=== PATIENT | female | born 1935 | race Caucasian/White ===

== ENCOUNTER → 2018-10-05 | Outpatient (REF) | payer MEDICARE ==
[2018-10-12 00:06] LABS: FATS NEUTRAL Normal (.); FATS TOTAL Normal (.); O+P EXAM Final report (.)
== END ==
LOC: M LAB REF 14:21
DX: R19.4 Change in bowel habit (principal); K58.9 Irritable bowel syndrome, unspecified; K21.9 Gastro-esophageal reflux disease without esophagitis; R11.2 Nausea with vomiting, unspecified
CPT/HCPCS: 87177

== ENCOUNTER → 2019-07-03 | Outpatient (CLI) | payer MEDICARE ==
[~2019-07-03] MED LIST: ACET65TA OR; AMIT75TA2 OR; COMBIGAN OS; COUM1TAB18 OR; DICY10EL OR; FIBER TABS PO; FISHCAP PO; GLUCAGON FOR INJ 1 MG VIAL (J1610) As Ordered ONE; ISOVUE-370 76% 100ML VIAL (Q9967) As Ordered ONE; LIBRAX PO; NEXI1CAP3 OR; NUCYNTA PO; PREMARIN EC; TRAM50TA2 OR; VITAMIN D PO; VoLumen 0.1% SUSPENSION 450ML BOTTLE As Ordered ONE; ZANAFLEX PO; ZOCOR PO; [UNRECOGNIZED DRUG - OTHER] PO; [UNRECOGNIZED DRUG - OTHER] PO
--- NOTE | 2019-07-04 09:30 | REP ---
CT ENTEROGRAPHY WITH ORAL AND IV CONTRAST: CT enterography was performed as per hospital protocol with oral Volumen administered as well as 100 mL of Isovue-370 intravenously. Sagittal and coronal reconstruction images are performed. Visualized lung bases demonstrate minor fibrotic change. Bilateral metallic hip prostheses cause streak artifact limiting evaluation of the lower pelvic structures. The patient has had a prior cholecystectomy. There is expected prominence of the common bile duct which measures about 10 mm maximally. There is slight prominence of the intrahepatic bile ducts. Tiny cyst is seen at the anterior superior margin of the liver. The spleen is normal in size with no intrinsic abnormality. The adrenal glands, pancreas and kidneys are unremarkable. There is no hydronephrosis bilaterally. There is moderate atherosclerotic calcifications of the abdominal aorta without aneurysm. There is no evidence of lymphadenopathy. There is no free air or free fluid. There is no bowel wall thickening. There is sigmoid diverticulosis without evidence of acute diverticulitis. Several subcentimeter lymph nodes are seen in the mesentery predominately on the left side. There is no anterior abdominal wall hernia. No gross pelvic mass is seen. Although again evaluation of inferior pelvic structures is limited. There is oval lucency with sclerotic margin in the superior right acetabulum adjacent to the acetabular prosthesis over the apparent disruption over the lateral acetabular cortex. The area measures about 2.9 x 2.0 cm. IMPRESSION: Status-post cholecystectomy with expected prominence of the common bile duct. No bowel wall thickening or inflammation and no evidence of bowel obstruction. There is sigmoid diverticulosis without acute diverticulitis. No free air or free fluid. Metallic hip prostheses cause streak artifact limiting evaluation of the lower pelvic structures. There is disruption of the lateral acetabular cortex on the right at the interface with the acetabular prosthetic component ,with cystic changes undermining the prosthetic right acetabulum. This appears chronic with no acute fracture, but could indicate developing loosening of that prosthetic acetabular component. Electronically Signed by Shahid Byrd MD 07/04/2019 07:18 P
== END ==
LOC: M RAD 13:04
PROVIDERS: ATTEND Internal Medicine Gastroenterology
DX: K59.1 Functional diarrhea (principal); R11.2 Nausea with vomiting, unspecified; K21.9 Gastro-esophageal reflux disease without esophagitis; Z83.79 Family history of other diseases of the digestive system; R63.4 Abnormal weight loss; Z90.49 Acquired absence of other specified parts of digestive tract; Z96.649 Presence of unspecified artificial hip joint
CPT/HCPCS: 74177; J1610; Q9967

== ENCOUNTER 2019-08-20 16:17 | Emergency (ER) | payer MEDICARE ==
[~2019-08-20 16:17] MED LIST changes: -GLUCAGON FOR INJ 1 MG VIAL (J1610) As Ordered ONE; -ISOVUE-370 76% 100ML VIAL (Q9967) As Ordered ONE; -VoLumen 0.1% SUSPENSION 450ML BOTTLE As Ordered ONE
[2019-08-20] MEDS ORDERED: DICY10CA13 PO (16:39)
[2019-08-20] MEDS ORDERED: RAMI1CAP26 (16:39)
[2019-08-20] MEDS ORDERED: MAG-400T7 (16:39)
[2019-08-20] MEDS ORDERED: NS 500 ML IV ONE ×2 (16:45→17:45)
[2019-08-20 16:58] LABS: BASO % 0.3 % (0.0-1.0); EOS # 0.2 10^3/uL (0.0-0.5); EOS % 2.5 % (0.0-3.0); HEMATOCRIT 40.9 % (36.0-47.0); HEMOGLOBIN 13.3 g/dl (12.0-15.5); LYMPH # 1.1 10^3/uL (1.5-5.0); LYMPH % 15.2 % (24.0-44.0); MEAN CORPUSCULAR HGB CONC 32.5 g/dl (32.0-36.5); MEAN CORPUSCULAR VOLUME 92.3 fl (80.0-96.0); MONO # 0.5 10^3/uL (0.0-0.8); MONO % 6.9 % (0.0-5.0); NEUTROPHILS # 5.3 10^3/uL (1.5-8.5); NEUTROPHILS % 74.7 % (36.0-66.0); PLATELET COUNT, AUTOMATED 194 10^3/uL (150-450); RED BLOOD COUNT 4.43 10^6/uL (4.00-5.40); WHITE BLOOD COUNT 7.1 10^3/uL (4.0-10.0)
[2019-08-20 17:39] LABS: ALBUMIN 3.5 GM/DL (3.2-5.2); ALT/SGPT 19 U/L (12-78); BILIRUBIN,DIRECT < 0.1 MG/DL (0.0-0.2); BILIRUBIN,TOTAL 0.4 MG/DL (0.2-1.0); BLOOD UREA NITROGEN 27 MG/DL (7-18); CALCIUM LEVEL 8.8 MG/DL (8.8-10.2); CARBON DIOXIDE LEVEL 23 MEQ/L (21-32); CHLORIDE LEVEL 110 MEQ/L (98-107); CREATININE FOR GFR 1.13 MG/DL (0.55-1.30); GLOMERULAR FILTRATION RATE 49.1 (>32); GLUCOSE, FASTING 166 MG/DL (70-100); LIPASE 113 U/L (73-393); POTASSIUM SERUM 4.7 MEQ/L (3.5-5.1); SODIUM LEVEL 142 MEQ/L (136-145)
[2019-08-20 18:30] VITALS: BP 177/80
--- NOTE | 2019-08-20 18:39 | ECGEPIP ---
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
== END 2019-08-20 19:04 | disposition home or self-care (01) ==
LOC: EDBD 16:17 → M ED 16:17
DX: R11.2 Nausea with vomiting, unspecified (principal); R19.7 Diarrhea, unspecified; R00.1 Bradycardia, unspecified; I10 Essential (primary) hypertension; E78.5 Hyperlipidemia, unspecified; K58.0 Irritable bowel syndrome with diarrhea; G51.0 Bell's palsy; Z88.5 Allergy status to narcotic agent; Z79.899 Other long term (current) drug therapy

== ENCOUNTER → 2019-08-31 | Outpatient (REF) | payer MEDICARE ==
[~2019-08-31] MED LIST changes: +DICY10CA13 PO; +MAG-400T7; +RAMI1CAP26
== END ==
LOC: M LAB REF 15:40
PROVIDERS: ATTEND Internal Medicine Gastroenterology
DX: K21.9 Gastro-esophageal reflux disease without esophagitis (principal); Z83.79 Family history of other diseases of the digestive system; R63.4 Abnormal weight loss; R11.2 Nausea with vomiting, unspecified; K59.1 Functional diarrhea

== ENCOUNTER → 2020-01-03 | Outpatient (CLI) | payer MEDICARE ==
[2020-01-03 12:38] LABS: HEMATOCRIT 43.5 % (36.0-47.0); HEMOGLOBIN 13.6 g/dl (12.0-15.5); MEAN CORPUSCULAR HEMOGLOBIN 28.9 pg (27.0-33.0); MEAN CORPUSCULAR HGB CONC 31.3 g/dl (32.0-36.5); MEAN CORPUSCULAR VOLUME 92.4 fl (80.0-96.0); PLATELET COUNT, AUTOMATED 224 10^3/uL (150-450); RED BLOOD COUNT 4.71 10^6/uL (4.00-5.40); WHITE BLOOD COUNT 4.9 10^3/uL (4.0-10.0)
[2020-01-03 13:17] LABS: MAGNESIUM LEVEL 1.8 MG/DL (1.8-2.4); PERCENT SATURATION 29.2 % (13.2-45.0); TOTAL 25(OH) VITAMIN D 27.6 NG/ML (30.0-100.0)
== END ==
LOC: M LAB 11:34
PROVIDERS: ATTEND Internal Medicine Gastroenterology
DX: R63.4 Abnormal weight loss (principal); R60.0 Localized edema; R11.2 Nausea with vomiting, unspecified; K21.9 Gastro-esophageal reflux disease without esophagitis; K58.9 Irritable bowel syndrome, unspecified; E55.9 Vitamin D deficiency, unspecified; D50.9 Iron deficiency anemia, unspecified

== ENCOUNTER → 2020-08-20 | Outpatient (CLI) | payer MEDICARE | LOC: M LABSMTC 10:36 | PROVIDERS: ATTEND Pediatrics | DX: Z20.828 Contact with and (suspected) exposure to other viral communicable diseases (principal) ==

== ENCOUNTER → 2021-03-04 | Outpatient (REF) | payer MEDICARE | LOC: M LAB REF 09:16 | PROVIDERS: ATTEND Dermatology | DX: C44.722 Squamous cell carcinoma of skin of right lower limb, including hip (principal) ==

== ENCOUNTER → 2021-07-31 | Outpatient (CLI) | payer MEDICARE | LOC: M PLAIMG 13:24 | PROVIDERS: ATTEND Internal Medicine | DX: M54.5 Low back pain (principal) ==

== ENCOUNTER → 2021-12-26 | Outpatient (CLI) | payer MEDICARE | LOC: M WUC 15:37 | PROVIDERS: ATTEND Internal Medicine | DX: M79.674 Pain in right toe(s) (principal) ==

== ENCOUNTER → 2022-02-03 | Outpatient (CLI) | payer MEDICARE | LOC: M WHC 10:02 | PROVIDERS: ATTEND Internal Medicine | DX: Z12.31 Encounter for screening mammogram for malignant neoplasm of breast (principal); Z13.820 Encounter for screening for osteoporosis; M81.0 Age-related osteoporosis without current pathological fracture ==

== ENCOUNTER → 2022-09-02 | Outpatient (REF) | payer MEDICARE | LOC: M LAB REF 12:21 | PROVIDERS: ATTEND Internal Medicine | DX: R44.1 Visual hallucinations (principal) ==

== ENCOUNTER → 2022-12-08 | Outpatient (REF) | payer MEDICARE | LOC: M LAB REF 12:25 | PROVIDERS: ATTEND Internal Medicine | DX: R44.1 Visual hallucinations (principal) ==

== ENCOUNTER 2023-08-03 23:13 | Observation (INO) | payer MEDICARE ==
[~2023-08-03] VITALS: Ht 172.7 cm; Wt 72.7 kg
[~2023-08-03 23:13] MED LIST changes: +DICY-61 PO; -DICY10CA13 PO
[2023-08-03] MEDS ORDERED: NS 1,000 ML IV ONE (23:45)
[2023-08-04 00:36] LABS: BASO % 0.1 % (0.0-1.0); EOS % 0.1 % (0.0-3.0); HEMATOCRIT 40.2 % (36.0-47.0); HEMOGLOBIN 13.3 g/dl (12.0-15.5); LYMPH % 8.1 % (24.0-44.0); MEAN CORPUSCULAR HEMOGLOBIN 29.6 pg (27.0-33.0); MEAN CORPUSCULAR HGB CONC 33.1 g/dl (32.0-36.5); MEAN CORPUSCULAR VOLUME 89.5 fl (80.0-96.0); MONO # 0.7 10^3/uL (0.0-0.8); MONO % 5.3 % (2.0-8.0); NEUTROPHILS # 10.7 10^3/uL (1.5-8.5); PLATELET COUNT, AUTOMATED 231 10^3/uL (150-450); RED BLOOD COUNT 4.49 10^6/uL (4.00-5.40); WHITE BLOOD COUNT 12.4 10^3/uL (4.0-10.0)
[2023-08-04 00:54] LABS: INR 0.97; PROTHROMBIN TIME 12.6 SECONDS (12.5-14.5)
[2023-08-04 00:55] LABS: PARTIAL THROMBOPLASTIN TIME 25.8 SECONDS (24.8-34.2)
[2023-08-04 01:07] LABS: ALBUMIN 3.8 G/DL (3.2-5.2); BILIRUBIN,DIRECT 0.1 MG/DL (<0.4); BILIRUBIN,TOTAL 0.3 MG/DL (0.3-1.2); CK-MB VALUE MASS 1.5 NG/ML (<3.6); CREATININE FOR GFR 1.66 MG/DL (0.55-1.30); GLOMERULAR FILTRATION RATE 31.2 (>32); MB/CK RELATIVE INDEX 1.21 (< OR =4); POTASSIUM SERUM 3.8 MMOL/L (3.5-5.1); TOTAL PROTEIN 6.1 G/DL (5.7-8.2)
[2023-08-04] MEDS ORDERED: ISOVUE-370 76% 100ML VIAL As Ordered ONE (01:20)
[2023-08-04] MEDS ORDERED: ACETAMINOPHEN TAB 650MG DOSE (2X325MG) PO PRN (04:25)
[2023-08-04] MEDS ORDERED: NS 1,000 ML IV SCH (04:25)
[2023-08-04 05:13] LABS: BASO % 0.1 % (0.0-1.0); HEMATOCRIT 36.8 % (36.0-47.0); HEMOGLOBIN 11.9 g/dl (12.0-15.5); LYMPH # 1.6 10^3/uL (1.5-5.0); LYMPH % 16.9 % (24.0-44.0); MEAN CORPUSCULAR HGB CONC 32.3 g/dl (32.0-36.5); MEAN CORPUSCULAR VOLUME 89.5 fl (80.0-96.0); MONO # 0.6 10^3/uL (0.0-0.8); MONO % 6.6 % (2.0-8.0); NEUTROPHILS # 7.1 10^3/uL (1.5-8.5); NEUTROPHILS % 76.2 % (36.0-66.0); PLATELET COUNT, AUTOMATED 199 10^3/uL (150-450); RED BLOOD COUNT 4.11 10^6/uL (4.00-5.40); WHITE BLOOD COUNT 9.3 10^3/uL (4.0-10.0)
[2023-08-04 05:32] LABS: CALCIUM LEVEL 8.8 MG/DL (8.3-10.6); CK-MB VALUE MASS 1.7 NG/ML (<3.6); CREATININE FOR GFR 1.46 MG/DL (0.55-1.30); GLOMERULAR FILTRATION RATE 36.2 (>32); MB/CK RELATIVE INDEX 1.6 (< OR =4); POTASSIUM SERUM 4.3 MMOL/L (3.5-5.1)
[2023-08-04] MEDS ORDERED: CARA1TAB6 PO (06:25)
[2023-08-04] MEDS ORDERED: COMB0.2S OS (06:25)
[2023-08-04] MEDS ORDERED: BIOT1CAP2 PO (06:25)
[2023-08-04] MEDS ORDERED: GLIM2TAB4 PO (06:25)
[2023-08-04] MEDS ORDERED: MAGN400T2 PO (06:25)
[2023-08-04] MEDS ORDERED: CHLO125TA PO (06:25)
[2023-08-04] MEDS ORDERED: SIMV40TA20 PO (06:25)
[2023-08-04] MEDS ORDERED: LIBR5CAP PO (06:25)
[2023-08-04] MEDS ORDERED: ACET650T15 PO (06:25)
[2023-08-04] MEDS ORDERED: VITA500T41 PO (06:25)
[2023-08-04] MEDS ORDERED: DICY-61 PO (06:25)
[2023-08-04] MEDS ORDERED: VITA100093 PO (06:25)
[2023-08-04] MEDS ORDERED: TIZA1TAB12 PO (06:25)
[2023-08-04] MEDS ORDERED: AMIT-257 PO (06:25)
[2023-08-04] MEDS ORDERED: ESOM0.1C PO (06:25)
[2023-08-04] MEDS ORDERED: RAMI1CAP26 PO (06:25)
[2023-08-04] MEDS ORDERED: FLAR0.1S OS (06:25)
[2023-08-04] MEDS ORDERED: HOME MED LIST COMPLETE! XX SCH (06:30)
[2023-08-04] MEDS: HEPARIN SOD (PORCINE) 5000UNITS/ML 1ML VIAL/SYRINGE SC SCH ×3 (06:31→21:03)
[2023-08-04] MEDS: methylPREDNISolone 40MG 1ML VIAL IV SCH ×3 (06:31→20:22)
[2023-08-04] MEDS ORDERED: NS 1,000 ML IV ONE (08:25)
[2023-08-04 14:15] VITALS: BP 149/63; TEMP 97.7; O2SAT 95
[2023-08-04] MEDS ORDERED: LR 1,000 ML IV ONE (14:15)
[2023-08-04 15:38] LABS: CALCIUM LEVEL 8.7 MG/DL (8.3-10.6); CREATININE FOR GFR 1.13 MG/DL (0.55-1.30); GLOMERULAR FILTRATION RATE 48.6 (>32); POTASSIUM SERUM 3.8 MMOL/L (3.5-5.1)
[2023-08-04 18:00] VITALS: BP 146/63; TEMP 98.1; O2SAT 91
[2023-08-04] MEDS: NS 1,000 ML IV SCH (20:53)
[2023-08-04 21:10] VITALS: BP 131/61; TEMP 99.3; O2SAT 91
[2023-08-05 02:00] VITALS: BP 148/65; TEMP 98.8; O2SAT 94
[2023-08-05] MEDS: HEPARIN SOD (PORCINE) 5000UNITS/ML 1ML VIAL/SYRINGE SC SCH ×3 (05:12→21:32)
[2023-08-05] MEDS: methylPREDNISolone 40MG 1ML VIAL IV SCH (05:13)
[2023-08-05 05:47] VITALS: BP 134/60; TEMP 98.8; O2SAT 93
[2023-08-05 06:07] LABS: BASO % 0.1 % (0.0-1.0); HEMATOCRIT 32.8 % (36.0-47.0); HEMOGLOBIN 10.7 g/dl (12.0-15.5); LYMPH # 1.2 10^3/uL (1.5-5.0); LYMPH % 18.6 % (24.0-44.0); MEAN CORPUSCULAR HEMOGLOBIN 29.5 pg (27.0-33.0); MEAN CORPUSCULAR HGB CONC 32.6 g/dl (32.0-36.5); MEAN CORPUSCULAR VOLUME 90.4 fl (80.0-96.0); MONO # 0.4 10^3/uL (0.0-0.8); MONO % 6.4 % (2.0-8.0); NEUTROPHILS % 74.6 % (36.0-66.0); PLATELET COUNT, AUTOMATED 187 10^3/uL (150-450); RED BLOOD COUNT 3.63 10^6/uL (4.00-5.40); WHITE BLOOD COUNT 6.7 10^3/uL (4.0-10.0)
[2023-08-05 06:43] LABS: CALCIUM LEVEL 8.1 MG/DL (8.3-10.6); CREATININE FOR GFR 0.96 MG/DL (0.55-1.30); GLOMERULAR FILTRATION RATE 58.7 (>32)
[2023-08-05] MEDS: NS 1,000 ML IV SCH (06:51)
[2023-08-05] MEDS ORDERED: ramipriL 5 MG CAP PO SCH (09:00)
[2023-08-05] MEDS: BRIMONIDINE 0.15% OPHTH SOLN 5 ML OS SCH ×3 (09:09→21:32)
[2023-08-05] MEDS: TIMOLOL MALEATE 0.5% OPHTH SOLN 5 ML OS SCH ×2 (09:10→21:32)
[2023-08-05] MEDS: LACTOBACILLUS ACIDOPHILUS CAP (BACID) PO SCH ×3 (13:43→21:32)
[2023-08-05] MEDS: metroNIDAZOLE (FLAGYL) 500MG TABLET PO SCH ×2 (13:43→21:31)
[2023-08-05] MEDS: CIPROFLOXACIN 500MG TABLET PO SCH (13:43)
[2023-08-05 14:00] VITALS: BP 142/74; TEMP 97.7; O2SAT 93
[2023-08-05] MEDS ORDERED: AMITRIPTYLINE 50 MG TAB PO SCH (21:00)
[2023-08-05 22:00] VITALS: BP 112/54; TEMP 98.8; O2SAT 97
[2023-08-06] MEDS: metroNIDAZOLE (FLAGYL) 500MG TABLET PO SCH (05:15)
[2023-08-06] MEDS: CIPROFLOXACIN 500MG TABLET PO SCH (05:15)
[2023-08-06] MEDS: HEPARIN SOD (PORCINE) 5000UNITS/ML 1ML VIAL/SYRINGE SC SCH (05:16)
[2023-08-06 05:38] VITALS: BP 137/63; TEMP 97.9; O2SAT 94
[2023-08-06 06:12] LABS: BASO % 0.3 % (0.0-1.0); EOS % 0.2 % (0.0-3.0); HEMATOCRIT 33.3 % (36.0-47.0); HEMOGLOBIN 10.7 g/dl (12.0-15.5); LYMPH # 2.2 10^3/uL (1.5-5.0); LYMPH % 38.6 % (24.0-44.0); MEAN CORPUSCULAR HEMOGLOBIN 29.2 pg (27.0-33.0); MEAN CORPUSCULAR HGB CONC 32.1 g/dl (32.0-36.5); MONO # 0.6 10^3/uL (0.0-0.8); MONO % 9.9 % (2.0-8.0); NEUTROPHILS # 2.9 10^3/uL (1.5-8.5); NEUTROPHILS % 50.7 % (36.0-66.0); PLATELET COUNT, AUTOMATED 180 10^3/uL (150-450); RED BLOOD COUNT 3.66 10^6/uL (4.00-5.40); WHITE BLOOD COUNT 5.7 10^3/uL (4.0-10.0)
[2023-08-06 06:37] LABS: CALCIUM LEVEL 8.4 MG/DL (8.3-10.6); CREATININE FOR GFR 1.1 MG/DL (0.55-1.30); GLOMERULAR FILTRATION RATE 50.1 (>32); POTASSIUM SERUM 3.9 MMOL/L (3.5-5.1)
[2023-08-06] MEDS ORDERED: METR-265 PO (07:49)
[2023-08-06] MEDS ORDERED: PRED10TA2 PO (07:49)
[2023-08-06] MEDS ORDERED: RISATAB3 PO (07:49)
[2023-08-06] MEDS ORDERED: CIPR-249 PO (07:49)
[2023-08-06 08:32] VITALS: BP 137/63
[2023-08-06] MEDS: LACTOBACILLUS ACIDOPHILUS CAP (BACID) PO SCH (08:32)
[2023-08-06] MEDS: TIMOLOL MALEATE 0.5% OPHTH SOLN 5 ML OS SCH (08:32)
[2023-08-06] MEDS: BRIMONIDINE 0.15% OPHTH SOLN 5 ML OS SCH (08:32)
[2023-08-06] MEDS ORDERED: AMLO1TAB25 PO (08:47)
[2023-08-06] MEDS ORDERED: predniSONE 20 MG TAB PO SCH (09:00)
[2023-08-06] MEDS ORDERED: PANTOPRAZOLE 40MG VIAL IV ONE (09:15)
[2023-08-06] MEDS ORDERED: SUCRALFATE SUSP 1GM/10ML UD PO ONE (09:15)
== END 2023-08-06 12:09 | disposition home health service (06) ==
LOC: M ED 23:13 → M ED INP 08-04 03:31 → INTOOBSV 08-04 03:31 → M MSPAV 08-04 14:15
PROVIDERS: ADMIT Family Medicine; ATTEND General Practice
DX: A04.4 Other intestinal Escherichia coli infections (principal); A04.0 Enteropathogenic Escherichia coli infection; A04.1 Enterotoxigenic Escherichia coli infection; K51.00 Ulcerative (chronic) pancolitis without complications; N17.9 Acute kidney failure, unspecified; R11.2 Nausea with vomiting, unspecified; E86.9 Volume depletion, unspecified; I10 Essential (primary) hypertension; R10.32 Left lower quadrant pain; Z87.19 Personal history of other diseases of the digestive system; Z88.5 Allergy status to narcotic agent; Z79.899 Other long term (current) drug therapy; Z83.3 Family history of diabetes mellitus; Z82.49 Family history of ischemic heart disease and other diseases of the circulatory system; Z82.3 Family history of stroke
CPT/HCPCS: 36415; 71045; 74177; 80047; 80048; 80076; 81001; 82550; 82553; 83605; 83690; 84484; 85025; 85610; 85730; 87040; 87086; 87486; 87507; 87581; 87633; 87798; 93005; 93041; 96361; 96372; 96374; 96375; 96376; 97161; 99285; C9113; G0378; J2920; J7512; Q9967

== ENCOUNTER 2023-10-29 21:01 | Inpatient (IN) | payer MEDICARE ==
[~2023-10-29] VITALS: Ht 172.7 cm; Wt 75.0 kg
[~2023-10-29 21:01] MED LIST changes: +ACET650T15 PO; +AMIT-257 PO; +AMLO1TAB25 PO; +BIOT1CAP2 PO; +CARA1TAB6 PO; +CHLO125TA PO; +CIPR-249 PO; +COMB0.2S OS; +ESOM0.1C PO; +FLAR0.1S OS; +GLIM2TAB4 PO; +LIBR5CAP PO; +MAGN400T2 PO; +METR-265 PO; +PRED10TA2 PO; +RAMI1CAP26 PO; +RISATAB3 PO; +SIMV40TA20 PO; +TIZA1TAB12 PO; +VITA100093 PO; +VITA500T41 PO
[2023-10-29 21:36] LABS: BASO % 0.2 % (0.0-1.0); HEMATOCRIT 39.5 % (36.0-47.0); HEMOGLOBIN 12.8 g/dl (12.0-15.5); LYMPH # 0.7 10^3/uL (1.5-5.0); LYMPH % 12.9 % (24.0-44.0); MEAN CORPUSCULAR HEMOGLOBIN 29.4 pg (27.0-33.0); MEAN CORPUSCULAR HGB CONC 32.4 g/dl (32.0-36.5); MEAN CORPUSCULAR VOLUME 90.6 fl (80.0-96.0); MONO # 0.3 10^3/uL (0.0-0.8); MONO % 6.5 % (2.0-8.0); NEUTROPHILS % 80.2 % (36.0-66.0); PLATELET COUNT, AUTOMATED 151 10^3/uL (150-450); RED BLOOD COUNT 4.36 10^6/uL (4.00-5.40)
[2023-10-29 22:02] LABS: ALBUMIN 3.1 G/DL (3.2-5.2); BILIRUBIN,TOTAL 1.2 MG/DL (0.3-1.2); CALCIUM LEVEL 8.5 MG/DL (8.3-10.6); CREATININE FOR GFR 1.17 MG/DL (0.55-1.30); GLOMERULAR FILTRATION RATE 46.7 (>32); POTASSIUM SERUM 3.4 MMOL/L (3.5-5.1); TOTAL PROTEIN 5.8 G/DL (5.7-8.2)
[2023-10-30] MEDS ORDERED: amLODIPine 5 MG TAB PO ONE (01:40)
[2023-10-30] MEDS ORDERED: hydrALAZINE 20MG/ML 1ML VIAL IV ONE (01:40)
[2023-10-30] MEDS ORDERED: COMBIVENT RESPIMAT 100-20MCG INHALER 4GM INH STA (04:24)
[2023-10-30] MEDS ORDERED: dexAMETHasone 20MG/5ML VIAL IV ONE (04:25)
[2023-10-30] MEDS ORDERED: ACETAMINOPHEN TAB 650MG DOSE (2X325MG) PO ONE (04:30)
[2023-10-30] MEDS ORDERED: AMLO2.5T3 PO (04:41)
[2023-10-30] MEDS ORDERED: LISI20TA33 PO (04:41)
[2023-10-30] MEDS ORDERED: HOME MED LIST COMPLETE! XX SCH (04:45)
[2023-10-30] MEDS ORDERED: DEXTROSE 50% 50ML SYRINGE IV PRN (05:45)
[2023-10-30] MEDS ORDERED: GLUCAGON INJ 1MG VIAL SC PRN (05:45)
[2023-10-30] MEDS ORDERED: GLUCOSE 4GM CHEW TABLET PO PRN (05:45)
[2023-10-30 06:20] LABS: ABG BASE EXCESS -2.9 (-2.0-2.0); ABG HCO3 20.4 MMOL/L (22.0-26.0); ABG O2 SATURATION 97.9 % (95.0-99.0); ABG PARTIAL PRESSURE CO2 31.3 mmHg (35.0-45.0); ABG PARTIAL PRESSURE O2 100.7 mmHg (75.0-100.0); ABG TOTAL CO2 21.4 MMOL/L (23.0-31.0); ABG pH (ARTERIAL) 7.432 UNITS (7.350-7.450)
[2023-10-30 06:39] LABS: INR 1.08; PROTHROMBIN TIME 13.7 SECONDS (12.5-14.5)
[2023-10-30 06:40] LABS: PARTIAL THROMBOPLASTIN TIME 30.9 SECONDS (24.8-34.2)
[2023-10-30 06:43] LABS: D-DIMER QUANT 2.92 ug/mL (<0.5)
[2023-10-30 07:00] LABS: MAGNESIUM LEVEL 1.6 MG/DL (1.8-2.4)
[2023-10-30] MEDS ORDERED: AZITHROMYCIN 250MG TABLET PO SCH (07:00)
[2023-10-30] MEDS ORDERED: KCL 10MEQ/100ML SWI (KRUN) 10 MEQ in IV 1 EA IV ONE (07:00)
[2023-10-30 07:05] LABS: FERRITIN 162.5 NG/ML (7.3-270.7)
[2023-10-30 07:10] LABS: C REACTIVE PROTEIN QUANTITATIV 27.4 MG/DL (<1.0)
[2023-10-30 07:14] LABS: PROCALCITONIN 7.37 ng/ml
[2023-10-30 07:59] LABS: HEMATOCRIT 37.3 % (36.0-47.0); HEMOGLOBIN 12.1 g/dl (12.0-15.5); MEAN CORPUSCULAR HEMOGLOBIN 29.1 pg (27.0-33.0); MEAN CORPUSCULAR HGB CONC 32.4 g/dl (32.0-36.5); MEAN CORPUSCULAR VOLUME 89.7 fl (80.0-96.0); PLATELET COUNT, AUTOMATED 148 10^3/uL (150-450); RED BLOOD COUNT 4.16 10^6/uL (4.00-5.40); WHITE BLOOD COUNT 5.1 10^3/uL (4.0-10.0)
[2023-10-30] MEDS ORDERED: REMDESIVIR 200 MG in NS 250 ML IV ONE (08:00)
[2023-10-30] MEDS: INSULIN LISPRO (NovoLOG) PER UNIT SC SCH ×4 (08:04→21:00)
[2023-10-30 08:18] LABS: CALCIUM LEVEL 8.4 MG/DL (8.3-10.6); CREATININE FOR GFR 0.98 MG/DL (0.55-1.30); GLOMERULAR FILTRATION RATE 57.3 (>32); POTASSIUM SERUM 3.5 MMOL/L (3.5-5.1)
[2023-10-30] MEDS ORDERED: POTASSIUM CHLORIDE 10MEQ SR TABLET PO ONE (09:00)
[2023-10-30] MEDS: ALBUTEROL 90 MCG/ACT 8GM HFA INHALER INH SCH ×3 (09:02→19:21)
[2023-10-30 09:21] LABS: PLATELET ESTIMATE NORMAL (NORMAL)
[2023-10-30] MEDS ORDERED: ISOVUE-370 76% 100ML VIAL As Ordered ONE (10:29)
[2023-10-30] MEDS: TIMOLOL MALEATE 0.5% OPHTH SOLN 5 ML OS SCH ×2 (12:00→21:45)
[2023-10-30] MEDS: BRIMONIDINE 0.15% OPHTH SOLN 5 ML OS SCH ×2 (12:00→21:45)
[2023-10-30] MEDS: CYANOCOBALAMIN 500 MCG TAB PO SCH (12:27)
[2023-10-30] MEDS: MAGNESIUM OXIDE 400MG TAB (MAG-OX) PO SCH (12:28)
[2023-10-30] MEDS: VITAMIN D 1,000 INTERNATIONAL UNITS TABLET PO SCH (12:28)
[2023-10-30] MEDS: OMEPRAZOLE 20MG CAP PO SCH ×2 (12:29→21:48)
[2023-10-30] MEDS: guaiFENesin ER TABLET 600 MG TAB PO SCH ×2 (12:29→21:47)
[2023-10-30] MEDS: HEPARIN SOD (PORCINE) 5000UNITS/ML 1ML VIAL/SYRINGE SQ SCH ×2 (12:38→21:46)
[2023-10-30 14:21] VITALS: BP 161/70; TEMP 96.8; O2SAT 95
[2023-10-30] MEDS ORDERED: LevoFLOXacin IV 750 MG in IV 1 EA IV SCH (15:00)
[2023-10-30] MEDS: NS 1,000 ML IV SCH ×2 (15:26→21:35)
[2023-10-30 18:00] VITALS: O2SAT 94
[2023-10-30 19:33] VITALS: BP 155/70; TEMP 97.5; O2SAT 94
[2023-10-30] MEDS: AMITRIPTYLINE 50 MG TAB PO SCH (21:46)
[2023-10-30 21:48] VITALS: BP 119/61
[2023-10-30] MEDS: tiZANidine 4 MG TAB PO SCH (21:48)
[2023-10-30] MEDS: SUCRALFATE 1 GM TAB PO SCH (21:48)
[2023-10-30] MEDS: SIMVASTATIN 40 MG TAB PO SCH (21:48)
[2023-10-31] VITALS (19 sets, daily range): BP systolic 92–152; BP diastolic 52–74; TEMP 96.5–99.7; O2SAT 92–98
[2023-10-31] MEDS: ALBUTEROL 90 MCG/ACT 8GM HFA INHALER INH SCH ×4 (01:13→19:43)
[2023-10-31] MEDS: NS 1,000 ML IV SCH ×3 (05:08→17:59)
[2023-10-31 06:27] LABS: HEMOGLOBIN 10.9 g/dl (12.0-15.5); MEAN CORPUSCULAR HEMOGLOBIN 28.9 pg (27.0-33.0); MEAN CORPUSCULAR HGB CONC 32.1 g/dl (32.0-36.5); MEAN CORPUSCULAR VOLUME 90.2 fl (80.0-96.0); PLATELET COUNT, AUTOMATED 142 10^3/uL (150-450); RED BLOOD COUNT 3.77 10^6/uL (4.00-5.40); WHITE BLOOD COUNT 4.8 10^3/uL (4.0-10.0)
[2023-10-31 06:53] LABS: ALBUMIN 2.2 G/DL (3.2-5.2); BILIRUBIN,DIRECT 0.2 MG/DL (<0.4); BILIRUBIN,TOTAL 0.4 MG/DL (0.3-1.2); CREATININE FOR GFR 1.23 MG/DL (0.55-1.30); GLOMERULAR FILTRATION RATE 44.1 (>32); POTASSIUM SERUM 4.1 MMOL/L (3.5-5.1); TOTAL PROTEIN 4.8 G/DL (5.7-8.2)
[2023-10-31 07:38] LABS: ATYPICAL LYMPH 8 % (0-5); LYMPHOCYTES 6 % (16-44); MONOCYTES 6 % (0-5); NEUTROPHILS 79 % (28-66); PLATELET ESTIMATE DECREASED (NORMAL)
[2023-10-31 07:39] LABS: TOXIC VACUOLATION 1+
[2023-10-31] MEDS: guaiFENesin ER TABLET 600 MG TAB PO SCH ×2 (08:50→20:30)
[2023-10-31] MEDS: TIMOLOL MALEATE 0.5% OPHTH SOLN 5 ML OS SCH ×2 (08:50→20:31)
[2023-10-31] MEDS: BRIMONIDINE 0.15% OPHTH SOLN 5 ML OS SCH ×2 (08:50→20:31)
[2023-10-31] MEDS: VITAMIN D 1,000 INTERNATIONAL UNITS TABLET PO SCH (08:50)
[2023-10-31] MEDS: CYANOCOBALAMIN 500 MCG TAB PO SCH (08:50)
[2023-10-31] MEDS: HEPARIN SOD (PORCINE) 5000UNITS/ML 1ML VIAL/SYRINGE SQ SCH ×2 (08:50→20:31)
[2023-10-31] MEDS: OMEPRAZOLE 20MG CAP PO SCH ×2 (08:50→20:45)
[2023-10-31] MEDS: INSULIN LISPRO (NovoLOG) PER UNIT SC SCH ×4 (08:51→20:34)
[2023-10-31] MEDS: REMDESIVIR 100 MG in NS 250 ML IV SCH (08:51)
[2023-10-31] MEDS: MAGNESIUM OXIDE 400MG TAB (MAG-OX) PO SCH (08:52)
[2023-10-31] MEDS: LACTOBACILLUS ACIDOPHILUS CAP (BACID) PO SCH ×2 (14:19→18:00)
[2023-10-31] MEDS: SIMVASTATIN 40 MG TAB PO SCH (20:29)
[2023-10-31] MEDS: AMITRIPTYLINE 50 MG TAB PO SCH (20:30)
[2023-10-31] MEDS: SUCRALFATE 1 GM TAB PO SCH (20:30)
[2023-10-31] MEDS: tiZANidine 4 MG TAB PO SCH (20:30)
[2023-10-31] MEDS: CIPROFLOXACIN 0.3% OPHTH SOLN 2.5ML OS SCH (23:57)
[2023-11-01] MEDS: ALBUTEROL 90 MCG/ACT 8GM HFA INHALER INH SCH ×4 (03:01→20:31)
[2023-11-01] MEDS: CIPROFLOXACIN 0.3% OPHTH SOLN 2.5ML OS SCH ×4 (05:48→23:58)
[2023-11-01 06:00] VITALS: BP 103/53; TEMP 97.5; O2SAT 92
[2023-11-01 06:05] LABS: BASO % 0.1 % (0.0-1.0); HEMATOCRIT 33.7 % (36.0-47.0); HEMOGLOBIN 10.9 g/dl (12.0-15.5); LYMPH # 0.7 10^3/uL (1.5-5.0); LYMPH % 9.1 % (24.0-44.0); MEAN CORPUSCULAR HEMOGLOBIN 29.2 pg (27.0-33.0); MEAN CORPUSCULAR HGB CONC 32.3 g/dl (32.0-36.5); MEAN CORPUSCULAR VOLUME 90.3 fl (80.0-96.0); MONO # 0.6 10^3/uL (0.0-0.8); MONO % 7.2 % (2.0-8.0); NEUTROPHILS # 6.5 10^3/uL (1.5-8.5); NEUTROPHILS % 82.1 % (36.0-66.0); PLATELET COUNT, AUTOMATED 177 10^3/uL (150-450); RED BLOOD COUNT 3.73 10^6/uL (4.00-5.40); WHITE BLOOD COUNT 7.9 10^3/uL (4.0-10.0)
[2023-11-01 06:27] LABS: C REACTIVE PROTEIN QUANTITATIV 13.2 MG/DL (<1.0)
[2023-11-01 06:43] LABS: ALBUMIN 2.2 G/DL (3.2-5.2); BILIRUBIN,DIRECT 0.1 MG/DL (<0.4); BILIRUBIN,TOTAL 0.3 MG/DL (0.3-1.2); CALCIUM LEVEL 7.6 MG/DL (8.3-10.6); CREATININE FOR GFR 1.13 MG/DL (0.55-1.30); GLOMERULAR FILTRATION RATE 48.6 (>32); POTASSIUM SERUM 3.9 MMOL/L (3.5-5.1); TOTAL PROTEIN 4.5 G/DL (5.7-8.2)
[2023-11-01] MEDS: HEPARIN SOD (PORCINE) 5000UNITS/ML 1ML VIAL/SYRINGE SQ SCH ×2 (08:49→21:53)
[2023-11-01] MEDS: INSULIN LISPRO (NovoLOG) PER UNIT SC SCH ×4 (08:50→21:00)
[2023-11-01] MEDS: LACTOBACILLUS ACIDOPHILUS CAP (BACID) PO SCH ×2 (08:51→17:44)
[2023-11-01] MEDS: VITAMIN D 1,000 INTERNATIONAL UNITS TABLET PO SCH (08:51)
[2023-11-01] MEDS: OMEPRAZOLE 20MG CAP PO SCH ×2 (08:51→21:54)
[2023-11-01] MEDS: MAGNESIUM OXIDE 400MG TAB (MAG-OX) PO SCH (08:51)
[2023-11-01] MEDS: TIMOLOL MALEATE 0.5% OPHTH SOLN 5 ML OS SCH ×2 (08:52→21:55)
[2023-11-01] MEDS: BRIMONIDINE 0.15% OPHTH SOLN 5 ML OS SCH ×2 (08:52→21:55)
[2023-11-01] MEDS: CYANOCOBALAMIN 500 MCG TAB PO SCH (08:52)
[2023-11-01] MEDS: REMDESIVIR 100 MG in NS 250 ML IV SCH (08:52)
[2023-11-01] MEDS: guaiFENesin ER TABLET 600 MG TAB PO SCH ×2 (08:52→21:54)
[2023-11-01 09:00] VITALS: O2SAT 93
[2023-11-01] MEDS: DEXTROMETHORPHAN 60MG/10ML SUSP 90ML BTL(DELSYM) PO PRN (12:37)
[2023-11-01 14:00] VITALS: BP 125/61; TEMP 97.9; O2SAT 94
[2023-11-01] MEDS ORDERED: LevoFLOXacin 750 MG TABLET PO SCH (15:00)
[2023-11-01 20:30] VITALS: BP 140/61; TEMP 97.9; O2SAT 95
[2023-11-01 20:32] VITALS: O2SAT 91
[2023-11-01] MEDS: AMITRIPTYLINE 50 MG TAB PO SCH (21:53)
[2023-11-01] MEDS: tiZANidine 4 MG TAB PO SCH (21:53)
[2023-11-01] MEDS: SIMVASTATIN 40 MG TAB PO SCH (21:54)
[2023-11-01] MEDS: SUCRALFATE 1 GM TAB PO SCH (21:54)
[2023-11-02] MEDS: ALBUTEROL 90 MCG/ACT 8GM HFA INHALER INH SCH ×3 (01:21→13:21)
[2023-11-02 05:47] LABS: BASO % 0.2 % (0.0-1.0); HEMOGLOBIN 11.2 g/dl (12.0-15.5); LYMPH # 1.3 10^3/uL (1.5-5.0); LYMPH % 14.3 % (24.0-44.0); MEAN CORPUSCULAR HEMOGLOBIN 28.6 pg (27.0-33.0); MEAN CORPUSCULAR VOLUME 89.5 fl (80.0-96.0); MONO # 0.9 10^3/uL (0.0-0.8); NEUTROPHILS # 6.7 10^3/uL (1.5-8.5); NEUTROPHILS % 73.1 % (36.0-66.0); PLATELET COUNT, AUTOMATED 236 10^3/uL (150-450); RED BLOOD COUNT 3.91 10^6/uL (4.00-5.40); WHITE BLOOD COUNT 9.2 10^3/uL (4.0-10.0)
[2023-11-02] MEDS: CIPROFLOXACIN 0.3% OPHTH SOLN 2.5ML OS SCH ×2 (05:50→13:12)
[2023-11-02] MEDS: DEXTROMETHORPHAN 60MG/10ML SUSP 90ML BTL(DELSYM) PO PRN (05:56)
[2023-11-02 06:00] VITALS: BP 138/60; TEMP 98.1; O2SAT 90
[2023-11-02 06:14] LABS: C REACTIVE PROTEIN QUANTITATIV 7.6 MG/DL (<1.0)
[2023-11-02 06:15] LABS: ALBUMIN 2.2 G/DL (3.2-5.2); BILIRUBIN,DIRECT 0.1 MG/DL (<0.4); BILIRUBIN,TOTAL 0.2 MG/DL (0.3-1.2); CALCIUM LEVEL 7.9 MG/DL (8.3-10.6); CREATININE FOR GFR 1.06 MG/DL (0.55-1.30); GLOMERULAR FILTRATION RATE 52.3 (>32); TOTAL PROTEIN 4.6 G/DL (5.7-8.2)
[2023-11-02] MEDS: COMBIVENT RESPIMAT 100-20MCG INHALER 4GM INH SCH ×2 (08:00→13:21)
[2023-11-02] MEDS: TIMOLOL MALEATE 0.5% OPHTH SOLN 5 ML OS SCH (08:18)
[2023-11-02] MEDS: REMDESIVIR 100 MG in NS 250 ML IV SCH (08:19)
[2023-11-02] MEDS: BRIMONIDINE 0.15% OPHTH SOLN 5 ML OS SCH (08:19)
[2023-11-02] MEDS: LACTOBACILLUS ACIDOPHILUS CAP (BACID) PO SCH (08:19)
[2023-11-02] MEDS: CYANOCOBALAMIN 500 MCG TAB PO SCH (08:20)
[2023-11-02] MEDS: guaiFENesin ER TABLET 600 MG TAB PO SCH (08:20)
[2023-11-02] MEDS: HEPARIN SOD (PORCINE) 5000UNITS/ML 1ML VIAL/SYRINGE SQ SCH (08:21)
[2023-11-02] MEDS: MAGNESIUM OXIDE 400MG TAB (MAG-OX) PO SCH (08:21)
[2023-11-02] MEDS: OMEPRAZOLE 20MG CAP PO SCH (08:21)
[2023-11-02] MEDS: VITAMIN D 1,000 INTERNATIONAL UNITS TABLET PO SCH (08:21)
[2023-11-02] MEDS: INSULIN LISPRO (NovoLOG) PER UNIT SC SCH ×2 (08:22→13:12)
[2023-11-02 09:00] VITALS: O2SAT 91
[2023-11-02 10:22] LABS: PROCALCITONIN 1.31 ng/ml
[2023-11-02] MEDS ORDERED: MUCI600T31 PO (10:25)
[2023-11-02] MEDS ORDERED: LEVO1TAB40 PO (10:25)
[2023-11-02] MEDS ORDERED: BENZ200C70 PO (10:25)
[2023-11-02] MEDS ORDERED: RISATAB3 PO (10:25)
[2023-11-02] MEDS ORDERED: COMBAER6 INH (10:25)
[2023-11-02] MEDS ORDERED: DEXA4TA PO (10:30)
[2023-11-02] MEDS ORDERED: DEXTROMETHORPHAN 60MG/10ML SUSP 90ML BTL(DELSYM) PO PRN (11:00)
[2023-11-02 14:00] VITALS: BP 135/62; TEMP 97.3; O2SAT 92
== END 2023-11-02 16:23 | disposition home health service (06) | DRG 177 ==
LOC: M ED 21:01 → EDBD 21:01 → M ED INP 10-30 05:45 → ENRESERV 10-30 12:46 → M PCU 10-30 14:39 → M MSPAV 10-31 19:59
PROVIDERS: ADMIT Internal Medicine; ATTEND Internal Medicine
PROC: XW033E5 Introduction of Remdesivir Anti-infective into Peripheral Vein, Percutaneous Approach, New Technology Group 5 (ICD-10-PCS; principal; 2023-10-30)
PROC: 3E0333Z Introduction of Anti-inflammatory into Peripheral Vein, Percutaneous Approach (ICD-10-PCS; 2023-10-30)
DX: U07.1 COVID-19 (principal); J96.01 Acute respiratory failure with hypoxia; J12.82 Pneumonia due to coronavirus disease 2019; J15.69 Pneumonia due to other Gram-negative bacteria; E11.22 Type 2 diabetes mellitus with diabetic chronic kidney disease; I12.9 Hypertensive chronic kidney disease with stage 1 through stage 4 chronic kidney disease, or unspecified chronic kidney disease; K21.9 Gastro-esophageal reflux disease without esophagitis; N18.30 Chronic kidney disease, stage 3 unspecified; F39 Unspecified mood [affective] disorder; E55.9 Vitamin D deficiency, unspecified; E53.8 Deficiency of other specified B group vitamins; Z66 Do not resuscitate; Z90.49 Acquired absence of other specified parts of digestive tract; Z96.641 Presence of right artificial hip joint; Z79.84 Long term (current) use of oral hypoglycemic drugs; Z79.899 Other long term (current) drug therapy; Z88.5 Allergy status to narcotic agent

== ENCOUNTER 2024-01-21 16:44 | Emergency (ER) | payer MEDICARE ==
[~2024-01-21] VITALS: Ht 170.2 cm; Wt 74.5 kg
[~2024-01-21 16:44] MED LIST changes: +AMLO2.5T3 PO; +BENZ200C70 PO; +COMBAER6 INH; +DEXA4TA PO; +LEVO1TAB40 PO; +LISI20TA33 PO; +MUCI600T31 PO
[2024-01-21 19:49] LABS: BASO % 0.2 % (0.0-1.0); EOS # 0.3 10^3/uL (0.0-0.5); EOS % 5.1 % (0.0-3.0); HEMATOCRIT 40.3 % (36.0-47.0); HEMOGLOBIN 12.9 g/dl (12.0-15.5); LYMPH # 1.5 10^3/uL (1.5-5.0); LYMPH % 31.5 % (24.0-44.0); MEAN CORPUSCULAR HEMOGLOBIN 28.5 pg (27.0-33.0); MEAN CORPUSCULAR VOLUME 89.2 fl (80.0-96.0); MONO # 0.5 10^3/uL (0.0-0.8); MONO % 10.7 % (2.0-8.0); NEUTROPHILS # 2.5 10^3/uL (1.5-8.5); NEUTROPHILS % 52.3 % (36.0-66.0); PLATELET COUNT, AUTOMATED 226 10^3/uL (150-450); RED BLOOD COUNT 4.52 10^6/uL (4.00-5.40); WHITE BLOOD COUNT 4.9 10^3/uL (4.0-10.0)
[2024-01-21 20:04] LABS: ERYTHROCYTE SEDIMENTATION RATE 13 mm/hr (0-30)
[2024-01-21 20:08] LABS: C REACTIVE PROTEIN QUANTITATIV < 0.40 MG/DL (<1.0)
[2024-01-21 20:09] LABS: BLOOD UREA NITROGEN 26 MG/DL (9-23); CALCIUM LEVEL 9.4 MG/DL (8.3-10.6); CARBON DIOXIDE LEVEL 27 MMOL/L (20-31); CHLORIDE LEVEL 107 MMOL/L (98-107); CREATININE FOR GFR 0.96 MG/DL (0.55-1.30); GLOMERULAR FILTRATION RATE 58.7 (>32); GLUCOSE, FASTING 104 MG/DL (74-106); POTASSIUM SERUM 4.3 MMOL/L (3.5-5.1); SODIUM LEVEL 140 MMOL/L (136-145)
[2024-01-21] MEDS ORDERED: ISOVUE-370 76% 100ML VIAL As Ordered ONE (20:38)
[2024-01-22 00:01] LABS: INR 0.9; PARTIAL THROMBOPLASTIN TIME 25.9 SECONDS (24.8-34.2); PROTHROMBIN TIME 11.9 SECONDS (12.5-14.5)
[2024-01-22 01:01] VITALS: BP 162/90; TEMP 96.4; O2SAT 98
[2024-01-22] MEDS ORDERED: ACET500T15 PO (20:28)
[2024-01-22] MEDS ORDERED: COQ150CH PO (20:28)
[2024-01-22] MEDS ORDERED: MAGNESIUM OIL TOP (20:29)
== END 2024-01-22 01:05 | disposition home or self-care (01) ==
LOC: M ED 16:44
DX: R22.42 Localized swelling, mass and lump, left lower limb (principal); E11.9 Type 2 diabetes mellitus without complications; I10 Essential (primary) hypertension; K58.9 Irritable bowel syndrome, unspecified; K21.9 Gastro-esophageal reflux disease without esophagitis; F10.10 Alcohol abuse, uncomplicated; Z88.5 Allergy status to narcotic agent; Z79.1 Long term (current) use of non-steroidal anti-inflammatories (NSAID); Z79.2 Long term (current) use of antibiotics; Z79.84 Long term (current) use of oral hypoglycemic drugs; Z79.899 Other long term (current) drug therapy

== ENCOUNTER 2024-01-22 15:06 | Inpatient (IN) | payer MEDICARE ==
[~2024-01-22] VITALS: Ht 166.9 cm; Wt 73.5 kg
[2024-01-22 16:21] LABS: BASO % 0.2 % (0.0-1.0); EOS # 0.1 10^3/uL (0.0-0.5); EOS % 0.7 % (0.0-3.0); HEMATOCRIT 39.5 % (36.0-47.0); HEMOGLOBIN 12.7 g/dl (12.0-15.5); LYMPH # 0.8 10^3/uL (1.5-5.0); LYMPH % 9.9 % (24.0-44.0); MEAN CORPUSCULAR HEMOGLOBIN 28.7 pg (27.0-33.0); MEAN CORPUSCULAR HGB CONC 32.2 g/dl (32.0-36.5); MEAN CORPUSCULAR VOLUME 89.2 fl (80.0-96.0); MONO # 0.5 10^3/uL (0.0-0.8); MONO % 5.6 % (2.0-8.0); NEUTROPHILS # 6.8 10^3/uL (1.5-8.5); NEUTROPHILS % 83.4 % (36.0-66.0); PLATELET COUNT, AUTOMATED 215 10^3/uL (150-450); RED BLOOD COUNT 4.43 10^6/uL (4.00-5.40); WHITE BLOOD COUNT 8.2 10^3/uL (4.0-10.0)
[2024-01-22 16:28] LABS: LIPASE 26 U/L (12-53)
[2024-01-22 16:30] LABS: ALBUMIN 3.6 G/DL (3.2-5.2); ALKALINE PHOSPHATASE 56 U/L (46-116); ALT/SGPT 20 U/L (7.0-40); AST/SGOT 17 U/L (<34); BILIRUBIN,DIRECT 0.1 MG/DL (<0.4); BILIRUBIN,TOTAL 0.4 MG/DL (0.3-1.2); BLOOD UREA NITROGEN 29 MG/DL (9-23); CALCIUM LEVEL 9.4 MG/DL (8.3-10.6); CARBON DIOXIDE LEVEL 27 MMOL/L (20-31); CHLORIDE LEVEL 109 MMOL/L (98-107); CREATININE FOR GFR 1.28 MG/DL (0.55-1.30); GLOMERULAR FILTRATION RATE 42.1 (>32); GLUCOSE, FASTING 146 MG/DL (74-106); POTASSIUM SERUM 4.1 MMOL/L (3.5-5.1); SODIUM LEVEL 141 MMOL/L (136-145); TOTAL PROTEIN 6.1 G/DL (5.7-8.2)
[2024-01-22 16:35] LABS: INR 1.03; PARTIAL THROMBOPLASTIN TIME 27.3 SECONDS (24.8-34.2); PROTHROMBIN TIME 13.2 SECONDS (12.5-14.5)
[2024-01-22 16:58] LABS: RSV AMPLIFICATION NEGATIVE (NEGATIVE)
[2024-01-22] MEDS ORDERED: ISOVUE-370 76% 100ML VIAL As Ordered ONE (17:06)
[2024-01-22 18:24] LABS: ERYTHROCYTE SEDIMENTATION RATE 8 mm/hr (0-30)
[2024-01-22] MEDS ORDERED: MORPHINE 2 MG/ML 1ML VIAL IV ONE (18:25)
[2024-01-22 18:33] LABS: C REACTIVE PROTEIN QUANTITATIV < 0.40 MG/DL (<1.0)
[2024-01-22 18:42] LABS: PROCALCITONIN <0.04 ng/ml
[2024-01-22] MEDS ORDERED: COQ150CH PO (20:28)
[2024-01-22] MEDS ORDERED: ACET500T15 PO (20:28)
[2024-01-22] MEDS ORDERED: MAGNESIUM OIL TOP (20:29)
[2024-01-22] MEDS ORDERED: HOME MED LIST COMPLETE! XX SCH (20:30)
[2024-01-22] MEDS: ACETAMINOPHEN TAB 650MG DOSE (2X325MG) PO ONE (20:33)
[2024-01-22] MEDS: ONDANSETRON 4MG 2ML VIAL IV PRN (20:33)
[2024-01-22] MEDS ORDERED: GLUCOSE 4GM CHEW TABLET PO PRN (23:35)
[2024-01-22] MEDS ORDERED: ONDANSETRON 4MG 2ML VIAL IV PRN (23:35)
[2024-01-22] MEDS ORDERED: DEXTROSE 50% 50ML SYRINGE IV PRN (23:35)
[2024-01-22] MEDS ORDERED: HYDROMORPHONE HCL 0.5 MG/ 0.5 ML SYRINGE IV PRN (23:35)
[2024-01-22] MEDS ORDERED: GLUCAGON INJ 1MG VIAL SC PRN (23:35)
[2024-01-23 00:03] VITALS: BP 152/57; TEMP 97; O2SAT 97
[2024-01-23] MEDS: NS 1,000 ML IV SCH (00:30)
[2024-01-23 04:03] VITALS: BP 156/70; TEMP 97.4; O2SAT 95
[2024-01-23 06:00] LABS: HEMATOCRIT 38.6 % (36.0-47.0); HEMOGLOBIN 12.7 g/dl (12.0-15.5)
[2024-01-23 06:29] LABS: CALCIUM LEVEL 8.9 MG/DL (8.3-10.6); CREATININE FOR GFR 1.06 MG/DL (0.55-1.30); GLOMERULAR FILTRATION RATE 52.3 (>32)
[2024-01-23 07:46] VITALS: BP 127/60; TEMP 97.5; O2SAT 92
[2024-01-23] MEDS: CIPROFLOXACIN 400 MG in IV 1 EA IV SCH (10:13)
[2024-01-23 12:00] VITALS: BP 121/58; TEMP 97.6; O2SAT 94
[2024-01-23] MEDS: metroNIDAZOLE 500 MG in IV 1 EA IV SCH (12:03)
[2024-01-23 14:42] LABS: HEMATOCRIT 38.4 % (36.0-47.0); HEMOGLOBIN 12.3 g/dl (12.0-15.5)
[2024-01-23 15:45] VITALS: BP 159/72; TEMP 97.5; O2SAT 98
[2024-01-23 20:00] VITALS: BP 146/62; TEMP 96.7; O2SAT 91
[2024-01-23] MEDS: INSULIN LISPRO (NovoLOG) PER UNIT SC SCH ×2 (20:55)
[2024-01-23 22:38] LABS: HEMATOCRIT 35.1 % (36.0-47.0); HEMOGLOBIN 11.2 g/dl (12.0-15.5)
[2024-01-24] VITALS: BP 127/58; TEMP 98.3; O2SAT 90
[2024-01-24 04:00] VITALS: BP 132/72; TEMP 97.4; O2SAT 91
[2024-01-24 04:27] LABS: MEAN CORPUSCULAR HEMOGLOBIN 28.9 pg (27.0-33.0); MEAN CORPUSCULAR HGB CONC 32.4 g/dl (32.0-36.5); MEAN CORPUSCULAR VOLUME 89.5 fl (80.0-96.0); PLATELET COUNT, AUTOMATED 177 10^3/uL (150-450); WHITE BLOOD COUNT 5.6 10^3/uL (4.0-10.0)
[2024-01-24 04:51] LABS: BLOOD UREA NITROGEN 15 MG/DL (9-23); CALCIUM LEVEL 7.8 MG/DL (8.3-10.6); CARBON DIOXIDE LEVEL 25 MMOL/L (20-31); CHLORIDE LEVEL 109 MMOL/L (98-107); CREATININE FOR GFR 0.92 MG/DL (0.55-1.30); GLOMERULAR FILTRATION RATE > 60.0 (>32); GLUCOSE, FASTING 92 MG/DL (74-106); POTASSIUM SERUM 3.7 MMOL/L (3.5-5.1); SODIUM LEVEL 140 MMOL/L (136-145)
[2024-01-24] MEDS: INSULIN LISPRO (NovoLOG) PER UNIT SC SCH (07:30)
[2024-01-24 08:15] VITALS: BP 122/68; TEMP 96.8; O2SAT 93
[2024-01-24] MEDS ORDERED: metroNIDAZOLE (FLAGYL) 500MG TABLET PO SCH (09:05)
[2024-01-24] MEDS ORDERED: DICYCLOMINE 10 MG CAP PO PRN (09:05)
[2024-01-24 09:51] LABS: IRON (FE) 60 UG/DL (50-170); PERCENT SATURATION 20.7 % (13.2-45.0); TOTAL IRON BINDING CAPACITY 290 UG/DL (250-425)
[2024-01-24 09:53] LABS: FERRITIN 43.7 NG/ML (7.3-270.7)
[2024-01-24 09:54] LABS: FOLATE 23.03 NG/ML (>5.4); VITAMIN B12 LEVEL 606 PG/ML (211-911)
[2024-01-24] MEDS: OMEPRAZOLE 20MG CAP PO SCH (10:25)
[2024-01-24] MEDS: BRIMONIDINE 0.1% OPHTH SOLN 5ML OS SCH (13:40)
[2024-01-24] MEDS: TIMOLOL MALEATE 0.5% OPHTH SOLN 5 ML OS SCH (13:40)
[2024-01-24] MEDS: FLUOROMETHOLONE 0.1% OPHTH SUSP 5ML BTL OS SCH (15:37)
[2024-01-24 15:41] LABS: HEMATOCRIT 35.7 % (36.0-47.0); HEMOGLOBIN 11.4 g/dl (12.0-15.5)
[2024-01-24 15:50] VITALS: BP 160/84; TEMP 97.7; O2SAT 97
[2024-01-24] MEDS ORDERED: CIPROFLOXACIN 500MG TABLET PO SCH (18:00)
[2024-01-24 20:49] VITALS: BP 168/70
[2024-01-24] MEDS: tiZANidine 4 MG TAB PO SCH (20:49)
[2024-01-24] MEDS: SUCRALFATE 1 GM TAB PO SCH (20:49)
[2024-01-24] MEDS: AMITRIPTYLINE 50 MG TAB PO SCH (20:49)
[2024-01-24] MEDS: SIMVASTATIN 40 MG TAB PO SCH (20:50)
[2024-01-24 21:30] VITALS: BP 168/70; TEMP 97.7; O2SAT 95
[2024-01-24 22:29] LABS: HEMATOCRIT 34.8 % (36.0-47.0); HEMOGLOBIN 11.3 g/dl (12.0-15.5)
[2024-01-25 05:43] VITALS: BP 118/56; TEMP 97.9; O2SAT 93
[2024-01-25 06:10] LABS: HEMATOCRIT 33.7 % (36.0-47.0); HEMOGLOBIN 10.6 g/dl (12.0-15.5); MEAN CORPUSCULAR HEMOGLOBIN 28.3 pg (27.0-33.0); MEAN CORPUSCULAR HGB CONC 31.5 g/dl (32.0-36.5); MEAN CORPUSCULAR VOLUME 90.1 fl (80.0-96.0); PLATELET COUNT, AUTOMATED 175 10^3/uL (150-450); RED BLOOD COUNT 3.74 10^6/uL (4.00-5.40); WHITE BLOOD COUNT 4.4 10^3/uL (4.0-10.0)
[2024-01-25 06:30] LABS: CALCIUM LEVEL 8.5 MG/DL (8.3-10.6); CREATININE FOR GFR 1.03 MG/DL (0.55-1.30); GLOMERULAR FILTRATION RATE 54.1 (>32); POTASSIUM SERUM 3.8 MMOL/L (3.5-5.1)
[2024-01-25] MEDS: CYANOCOBALAMIN 500 MCG TAB PO SCH (08:14)
[2024-01-25] MEDS: VITAMIN D 1,000 INTERNATIONAL UNITS TABLET PO SCH (08:14)
[2024-01-25] MEDS ORDERED: AMOX875T2 PO (09:58)
[2024-01-25] MEDS ORDERED: META0.52 PO (09:58)
== END 2024-01-25 12:04 | disposition home or self-care (01) | DRG 392 ==
LOC: M ED 15:06 → EDBD 15:06 → M ED INP 21:12 → ENRESERV 22:23 → M PCU 23:58 → M MSPAV 01-24 15:40
PROVIDERS: ADMIT Internal Medicine; ATTEND Student in an Organized Health Care Education/Training Program
DX: A08.4 Viral intestinal infection, unspecified (principal); D62 Acute posthemorrhagic anemia; I12.9 Hypertensive chronic kidney disease with stage 1 through stage 4 chronic kidney disease, or unspecified chronic kidney disease; K21.9 Gastro-esophageal reflux disease without esophagitis; E11.22 Type 2 diabetes mellitus with diabetic chronic kidney disease; Z90.49 Acquired absence of other specified parts of digestive tract; Z96.643 Presence of artificial hip joint, bilateral; Z79.84 Long term (current) use of oral hypoglycemic drugs; Z79.899 Other long term (current) drug therapy; Z88.5 Allergy status to narcotic agent; N18.30 Chronic kidney disease, stage 3 unspecified; H40.9 Unspecified glaucoma; K58.0 Irritable bowel syndrome with diarrhea; E78.5 Hyperlipidemia, unspecified; M62.838 Other muscle spasm

== ENCOUNTER → 2024-03-07 | Outpatient (REF) | payer MEDICARE ==
[~2024-03-07] MED LIST changes: +ACET500T15 PO; +AMOX875T2 PO; +COQ150CH PO; +MAGN400T33 PO; +MAGNESIUM OIL TOP; +META0.52 PO
== END ==
LOC: M LAB REF 12:10
PROVIDERS: ATTEND Internal Medicine
DX: D64.9 Anemia, unspecified (principal)

== ENCOUNTER 2024-03-19 13:19 | Inpatient (IN) | payer MEDICARE ==
[~2024-03-19] VITALS: Ht 167.6 cm; Wt 72.3 kg
[2024-03-19 14:36] LABS: BASO % 0.4 % (0.0-1.0); EOS # 0.2 10^3/uL (0.0-0.5); EOS % 1.9 % (0.0-3.0); HEMATOCRIT 40.2 % (36.0-47.0); HEMOGLOBIN 12.9 g/dl (12.0-15.5); LYMPH # 1.5 10^3/uL (1.5-5.0); LYMPH % 19.7 % (24.0-44.0); MEAN CORPUSCULAR HEMOGLOBIN 29.1 pg (27.0-33.0); MEAN CORPUSCULAR HGB CONC 32.1 g/dl (32.0-36.5); MEAN CORPUSCULAR VOLUME 90.7 fl (80.0-96.0); MONO # 0.3 10^3/uL (0.0-0.8); MONO % 4.1 % (2.0-8.0); NEUTROPHILS # 5.7 10^3/uL (1.5-8.5); NEUTROPHILS % 73.4 % (36.0-66.0); PLATELET COUNT, AUTOMATED 248 10^3/uL (150-450); RED BLOOD COUNT 4.43 10^6/uL (4.00-5.40); WHITE BLOOD COUNT 7.7 10^3/uL (4.0-10.0)
[2024-03-19 15:01] LABS: LIPASE 30 U/L (12-53)
[2024-03-19 15:04] LABS: ALBUMIN 3.4 G/DL (3.2-5.2); ALKALINE PHOSPHATASE 57 U/L (46-116); ALT/SGPT 20 U/L (7.0-40); AST/SGOT 28 U/L (<34); BILIRUBIN,DIRECT < 0.1 MG/DL (<0.4); BILIRUBIN,TOTAL 0.4 MG/DL (0.3-1.2); BLOOD UREA NITROGEN 31 MG/DL (9-23); CALCIUM LEVEL 9.1 MG/DL (8.3-10.6); CARBON DIOXIDE LEVEL 23 MMOL/L (20-31); CHLORIDE LEVEL 107 MMOL/L (98-107); CK-MB VALUE MASS 1.6 NG/ML (<3.6); CREATININE FOR GFR 1.18 MG/DL (0.55-1.30); GLOMERULAR FILTRATION RATE 46.2 (>32); GLUCOSE, FASTING 184 MG/DL (74-106); POTASSIUM SERUM 4.6 MMOL/L (3.5-5.1); SODIUM LEVEL 141 MMOL/L (136-145); TOTAL PROTEIN 5.9 G/DL (5.7-8.2)
[2024-03-19] MEDS ORDERED: ISOVUE-370 76% 100ML VIAL As Ordered ONE (15:07)
[2024-03-19 15:08] LABS: CPK CREATINE PHOSPHOKINASE 100 U/L (34-145)
[2024-03-19] MEDS: NS 1,000 ML IV ONE ×2 (15:18)
[2024-03-19] MEDS: ONDANSETRON 4MG 2ML VIAL IV ONE (15:19)
[2024-03-19] MEDS: NS 1,000 ML IV SCH (16:55)
[2024-03-19] MEDS: CIPROFLOXACIN 400 MG in IV 1 EA IV ONE (17:04)
[2024-03-19 17:09] LABS: ERYTHROCYTE SEDIMENTATION RATE 8 mm/hr (0-30)
[2024-03-19] MEDS ORDERED: META0.52 PO (17:12)
[2024-03-19] MEDS ORDERED: LOTE5DRO OS (17:12)
[2024-03-19] MEDS ORDERED: HOME MED LIST COMPLETE! XX SCH (17:15)
[2024-03-19 17:20] LABS: INR 1.17; PARTIAL THROMBOPLASTIN TIME 32.7 SECONDS (24.8-34.2); PROTHROMBIN TIME 14.5 SECONDS (12.5-14.5)
[2024-03-19 17:20] LABS: C REACTIVE PROTEIN QUANTITATIV < 0.40 MG/DL (<1.0)
[2024-03-19 17:22] LABS: IRON (FE) 83 UG/DL (50-170); PERCENT SATURATION 23.9 % (13.2-45.0); TOTAL IRON BINDING CAPACITY 347 UG/DL (250-425)
[2024-03-19 17:25] LABS: FERRITIN 17.6 NG/ML (7.3-270.7)
[2024-03-19 17:35] LABS: PROCALCITONIN 0.04 ng/ml
[2024-03-19] MEDS: ISOSORBIDE DIN. (ISORDIL) 20 MG TAB PO SCH (18:10)
[2024-03-19 18:45] VITALS: BP 172/92; TEMP 97.7; O2SAT 96
[2024-03-19] MEDS: metroNIDAZOLE 500 MG in IV 1 EA IV ONE (19:16)
[2024-03-19 20:06] VITALS: BP 156/80; TEMP 96.4; O2SAT 96
[2024-03-19] MEDS ORDERED: BENZOCAINE 10% 9GM TUBE (ANBESOL) MT SCH (21:00)
[2024-03-19] MEDS: SUCRALFATE 1 GM TAB PO SCH (21:25)
[2024-03-19] MEDS: ACETAMINOPHEN 500 MG TAB PO SCH (21:25)
[2024-03-19] MEDS: SIMVASTATIN 40 MG TAB PO SCH (21:26)
[2024-03-19] MEDS: BENZOCAINE 20% GEL 9GM TUBE (ANBESOL MAX STRENGTH) MT SCH (22:48)
[2024-03-19] MEDS: MUPIROCIN 2% OINT 22 GM TUBE TOP SCH (22:49)
[2024-03-20 00:24] LABS: HEMATOCRIT 35.6 % (36.0-47.0); HEMOGLOBIN 11.7 g/dl (12.0-15.5)
[2024-03-20] MEDS: metroNIDAZOLE 500 MG in IV 1 EA IV SCH (01:05)
[2024-03-20] MEDS: DICYCLOMINE 10 MG CAP PO PRN (01:16)
[2024-03-20] MEDS: CIPROFLOXACIN 400 MG in IV 1 EA IV SCH (04:32)
[2024-03-20 04:53] VITALS: BP_SYST 110; BP_SYST 112; BP_SYST 121; BP_DIAS 52; BP_DIAS 53; BP_DIAS 56
[2024-03-20 06:06] VITALS: BP 110/51; TEMP 98.4; O2SAT 94
[2024-03-20] MEDS: KETOROLAC 30 MG/ML 1ML VIAL IV ONE (06:10)
[2024-03-20 07:52] LABS: IONIZED CALCIUM 4.3 MG/DL (4.5-5.3)
[2024-03-20 08:03] LABS: BASO % 0.2 % (0.0-1.0); EOS # 0.1 10^3/uL (0.0-0.5); EOS % 1.6 % (0.0-3.0); HEMATOCRIT 34.5 % (36.0-47.0); HEMOGLOBIN 11.1 g/dl (12.0-15.5); LYMPH # 1.2 10^3/uL (1.5-5.0); LYMPH % 18.4 % (24.0-44.0); MEAN CORPUSCULAR HEMOGLOBIN 28.9 pg (27.0-33.0); MEAN CORPUSCULAR HGB CONC 32.2 g/dl (32.0-36.5); MEAN CORPUSCULAR VOLUME 89.8 fl (80.0-96.0); MONO # 0.7 10^3/uL (0.0-0.8); MONO % 10.5 % (2.0-8.0); NEUTROPHILS # 4.4 10^3/uL (1.5-8.5); NEUTROPHILS % 69.1 % (36.0-66.0); PLATELET COUNT, AUTOMATED 181 10^3/uL (150-450); RED BLOOD COUNT 3.84 10^6/uL (4.00-5.40); WHITE BLOOD COUNT 6.4 10^3/uL (4.0-10.0)
[2024-03-20 08:28] LABS: ALBUMIN 2.6 G/DL (3.2-5.2); BILIRUBIN,TOTAL 0.3 MG/DL (0.3-1.2); CALCIUM LEVEL 7.6 MG/DL (8.3-10.6); CREATININE FOR GFR 1.18 MG/DL (0.55-1.30); GLOMERULAR FILTRATION RATE 46.2 (>32); MAGNESIUM LEVEL 1.7 MG/DL (1.8-2.4); TOTAL PROTEIN 4.5 G/DL (5.7-8.2)
[2024-03-20 10:00] VITALS: BP_SYST 108; BP_SYST 110; BP_SYST 88; BP_DIAS 50; BP_DIAS 59
[2024-03-20] MEDS: VITAMIN D 1,000 INTERNATIONAL UNITS TABLET PO SCH (10:03)
[2024-03-20] MEDS: CYANOCOBALAMIN 500 MCG TAB PO SCH (10:03)
[2024-03-20] MEDS: MAGNESIUM OXIDE 400MG TAB (MAG-OX) PO SCH (10:07)
[2024-03-20] MEDS: NS 500 ML IV ONE ×2 (11:54→13:19)
[2024-03-20 13:14] VITALS: BP_SYST 137; BP_SYST 140; BP_SYST 143; BP_DIAS 63; BP_DIAS 64; BP_DIAS 66
[2024-03-20 15:00] VITALS: TEMP 97; O2SAT 97
[2024-03-20 22:00] VITALS: BP 133/54; TEMP 97.9; O2SAT 92
[2024-03-21 06:00] VITALS: BP 137/58; TEMP 97.5; O2SAT 92
[2024-03-21 06:36] LABS: BASO % 0.4 % (0.0-1.0); EOS # 0.3 10^3/uL (0.0-0.5); HEMATOCRIT 31.1 % (36.0-47.0); HEMOGLOBIN 9.8 g/dl (12.0-15.5); LYMPH # 1.2 10^3/uL (1.5-5.0); LYMPH % 22.1 % (24.0-44.0); MEAN CORPUSCULAR HEMOGLOBIN 28.9 pg (27.0-33.0); MEAN CORPUSCULAR HGB CONC 31.5 g/dl (32.0-36.5); MEAN CORPUSCULAR VOLUME 91.7 fl (80.0-96.0); MONO # 0.6 10^3/uL (0.0-0.8); MONO % 12.2 % (2.0-8.0); NEUTROPHILS # 3.2 10^3/uL (1.5-8.5); NEUTROPHILS % 60.1 % (36.0-66.0); PLATELET COUNT, AUTOMATED 159 10^3/uL (150-450); RED BLOOD COUNT 3.39 10^6/uL (4.00-5.40); WHITE BLOOD COUNT 5.2 10^3/uL (4.0-10.0)
[2024-03-21 07:09] LABS: CALCIUM LEVEL 8.3 MG/DL (8.3-10.6); CREATININE FOR GFR 1.1 MG/DL (0.55-1.30); GLOMERULAR FILTRATION RATE 50.1 (>32); MAGNESIUM LEVEL 1.7 MG/DL (1.8-2.4); POTASSIUM SERUM 3.8 MMOL/L (3.5-5.1)
[2024-03-21] MEDS: MAG SULF 1GM/100ML (MAG RUN) 1 GM in IV 1 EA IV ONE (08:24)
[2024-03-21 15:57] VITALS: BP 131/76; TEMP 97.7; O2SAT 96
[2024-03-21 21:12] VITALS: BP 170/75; TEMP 98.1; O2SAT 96
[2024-03-22 05:35] VITALS: BP 164/76; TEMP 97.7; O2SAT 96
[2024-03-22 06:00] VITALS: BP 148/77; TEMP 97.9; O2SAT 95
[2024-03-22 06:44] LABS: BASO % 0.4 % (0.0-1.0); EOS # 0.2 10^3/uL (0.0-0.5); EOS % 3.9 % (0.0-3.0); HEMATOCRIT 31.6 % (36.0-47.0); HEMOGLOBIN 10.2 g/dl (12.0-15.5); LYMPH # 0.9 10^3/uL (1.5-5.0); LYMPH % 17.3 % (24.0-44.0); MEAN CORPUSCULAR HEMOGLOBIN 28.7 pg (27.0-33.0); MEAN CORPUSCULAR HGB CONC 32.3 g/dl (32.0-36.5); MEAN CORPUSCULAR VOLUME 88.8 fl (80.0-96.0); MONO # 0.5 10^3/uL (0.0-0.8); MONO % 9.9 % (2.0-8.0); NEUTROPHILS # 3.7 10^3/uL (1.5-8.5); NEUTROPHILS % 68.1 % (36.0-66.0); PLATELET COUNT, AUTOMATED 164 10^3/uL (150-450); RED BLOOD COUNT 3.56 10^6/uL (4.00-5.40); WHITE BLOOD COUNT 5.4 10^3/uL (4.0-10.0)
[2024-03-22 07:08] LABS: BLOOD UREA NITROGEN 16 MG/DL (9-23); CALCIUM LEVEL 8.6 MG/DL (8.3-10.6); CARBON DIOXIDE LEVEL 24 MMOL/L (20-31); CHLORIDE LEVEL 110 MMOL/L (98-107); CREATININE FOR GFR 0.91 MG/DL (0.55-1.30); GLOMERULAR FILTRATION RATE > 60.0 (>32); GLUCOSE, FASTING 107 MG/DL (74-106); MAGNESIUM LEVEL 1.7 MG/DL (1.8-2.4); POTASSIUM SERUM 3.9 MMOL/L (3.5-5.1); SODIUM LEVEL 141 MMOL/L (136-145)
[2024-03-22] MEDS: MAG SULF 1GM/100ML (MAG RUN) 1 GM in IV 1 EA IV ONE ×2 (09:01→12:00)
[2024-03-22] MEDS ORDERED: metroNIDAZOLE (FLAGYL) 500MG TABLET PO SCH (12:10)
[2024-03-22] MEDS: GOLYTELY SOLN 4000 ML BTL PO ONE (14:33)
[2024-03-22] MEDS: CIPROFLOXACIN 500MG TABLET PO SCH (18:12)
[2024-03-22 18:15] VITALS: BP 159/78; TEMP 98.2; O2SAT 97
[2024-03-22 20:20] VITALS: BP 161/83; TEMP 97.3; O2SAT 97
[2024-03-22] MEDS: BISACODYL 10MG SUPP PR ONE (20:55)
[2024-03-22] MEDS: metroNIDAZOLE (FLAGYL) 500MG TABLET PO SCH (21:43)
[2024-03-23 05:26] VITALS: BP 168/77; TEMP 97.5; O2SAT 93
[2024-03-23 06:35] LABS: BASO % 0.2 % (0.0-1.0); EOS # 0.1 10^3/uL (0.0-0.5); EOS % 2.3 % (0.0-3.0); HEMATOCRIT 32.9 % (36.0-47.0); HEMOGLOBIN 10.9 g/dl (12.0-15.5); LYMPH # 1.1 10^3/uL (1.5-5.0); LYMPH % 22.2 % (24.0-44.0); MEAN CORPUSCULAR HEMOGLOBIN 28.8 pg (27.0-33.0); MEAN CORPUSCULAR HGB CONC 33.1 g/dl (32.0-36.5); MONO # 0.7 10^3/uL (0.0-0.8); MONO % 13.6 % (2.0-8.0); NEUTROPHILS # 3.2 10^3/uL (1.5-8.5); NEUTROPHILS % 61.5 % (36.0-66.0); PLATELET COUNT, AUTOMATED 185 10^3/uL (150-450); RED BLOOD COUNT 3.78 10^6/uL (4.00-5.40); WHITE BLOOD COUNT 5.1 10^3/uL (4.0-10.0)
[2024-03-23] MEDS ORDERED: propofoL 200 MG/20 ML VIAL As Ordered ONE (07:03)
[2024-03-23] MEDS ORDERED: LIDOCAINE 2% INJ 100 MG/5 ML SYRINGE As Ordered ONE (07:03)
[2024-03-23 07:10] LABS: BLOOD UREA NITROGEN 13 MG/DL (9-23); CALCIUM LEVEL 8.8 MG/DL (8.3-10.6); CARBON DIOXIDE LEVEL 26 MMOL/L (20-31); CHLORIDE LEVEL 106 MMOL/L (98-107); CREATININE FOR GFR 0.83 MG/DL (0.55-1.30); GLOMERULAR FILTRATION RATE > 60.0 (>32); GLUCOSE, FASTING 104 MG/DL (74-106); MAGNESIUM LEVEL 1.9 MG/DL (1.8-2.4); POTASSIUM SERUM 3.8 MMOL/L (3.5-5.1); SODIUM LEVEL 140 MMOL/L (136-145)
[2024-03-23 11:45] VITALS: BP 147/67
[2024-03-23 15:22] VITALS: BP 153/72; TEMP 98.1
[2024-03-23] MEDS ORDERED: PROCHLORPERAZINE 10MG 2ML VIAL IM PRN (15:55)
[2024-03-23 19:43] VITALS: BP 147/69; TEMP 96.8; O2SAT 94
[2024-03-23] MEDS: PROCHLORPERAZINE 10MG 2ML VIAL IV PRN (22:47)
[2024-03-24 05:14] VITALS: BP 145/70; TEMP 97.5; O2SAT 95
[2024-03-24 05:58] LABS: BASO % 0.5 % (0.0-1.0); EOS # 0.2 10^3/uL (0.0-0.5); EOS % 4.1 % (0.0-3.0); HEMOGLOBIN 10.8 g/dl (12.0-15.5); LYMPH # 1.2 10^3/uL (1.5-5.0); LYMPH % 27.5 % (24.0-44.0); MEAN CORPUSCULAR HEMOGLOBIN 29.3 pg (27.0-33.0); MEAN CORPUSCULAR HGB CONC 32.7 g/dl (32.0-36.5); MEAN CORPUSCULAR VOLUME 89.4 fl (80.0-96.0); MONO # 0.6 10^3/uL (0.0-0.8); MONO % 13.1 % (2.0-8.0); NEUTROPHILS # 2.4 10^3/uL (1.5-8.5); NEUTROPHILS % 54.6 % (36.0-66.0); PLATELET COUNT, AUTOMATED 182 10^3/uL (150-450); RED BLOOD COUNT 3.69 10^6/uL (4.00-5.40); WHITE BLOOD COUNT 4.4 10^3/uL (4.0-10.0)
[2024-03-24 06:26] LABS: BLOOD UREA NITROGEN 11 MG/DL (9-23); CALCIUM LEVEL 8.6 MG/DL (8.3-10.6); CARBON DIOXIDE LEVEL 26 MMOL/L (20-31); CHLORIDE LEVEL 107 MMOL/L (98-107); CREATININE FOR GFR 0.87 MG/DL (0.55-1.30); GLOMERULAR FILTRATION RATE > 60.0 (>32); GLUCOSE, FASTING 103 MG/DL (74-106); MAGNESIUM LEVEL 1.9 MG/DL (1.8-2.4); POTASSIUM SERUM 3.7 MMOL/L (3.5-5.1); SODIUM LEVEL 141 MMOL/L (136-145)
[2024-03-24 08:55] VITALS: BP 159/72
[2024-03-24 14:00] VITALS: BP 133/64; TEMP 97.3; O2SAT 96
[2024-03-24] MEDS ORDERED: CIPR500T39 PO (14:46)
[2024-03-24] MEDS ORDERED: METR-265 PO (14:46)
[2024-03-27 16:08] LABS: Chitobioside Carbohydrat (ACCA 0 units (0-90); Laminaribioside Carbohyd (ALCA 1 units (0-60); Mannobioside Carbohydrat (AMCA 7 units (0-100); Saccharomyces cerevisiae IgG A 0 units (0-50)
== END 2024-03-24 15:40 | disposition home or self-care (01) | DRG 392 ==
LOC: M ED 13:19 → M ED INP 16:50 → M MS5PR 18:45
PROVIDERS: ADMIT General Practice; ATTEND Hospitalist
PROC: B246ZZZ Ultrasonography of Right and Left Heart (ICD-10-PCS; principal; 2024-03-20)
DX: A09 Infectious gastroenteritis and colitis, unspecified (principal); E11.22 Type 2 diabetes mellitus with diabetic chronic kidney disease; K58.9 Irritable bowel syndrome, unspecified; N18.30 Chronic kidney disease, stage 3 unspecified; I12.9 Hypertensive chronic kidney disease with stage 1 through stage 4 chronic kidney disease, or unspecified chronic kidney disease; K21.9 Gastro-esophageal reflux disease without esophagitis; M62.838 Other muscle spasm; K57.30 Diverticulosis of large intestine without perforation or abscess without bleeding; E78.5 Hyperlipidemia, unspecified; I95.1 Orthostatic hypotension; E86.0 Dehydration; Z66 Do not resuscitate; Z79.899 Other long term (current) drug therapy; Z88.5 Allergy status to narcotic agent; D50.0 Iron deficiency anemia secondary to blood loss (chronic); Z96.643 Presence of artificial hip joint, bilateral; Z90.49 Acquired absence of other specified parts of digestive tract

== ENCOUNTER → 2024-04-18 | Outpatient (REF) | payer MEDICARE ==
[~2024-04-18] MED LIST changes: +CIPR500T39 PO; +LOTE5DRO OS; +RAMI10CA64; +RAMI10CA64 PO; -RAMI1CAP26; -RAMI1CAP26 PO
[2024-04-18 17:11] LABS: HEMATOCRIT 38.8 % (36.0-47.0); HEMOGLOBIN 12.1 g/dl (12.0-15.5); MEAN CORPUSCULAR HEMOGLOBIN 28.6 pg (27.0-33.0); MEAN CORPUSCULAR HGB CONC 31.2 g/dl (32.0-36.5); MEAN CORPUSCULAR VOLUME 91.7 fl (80.0-96.0); PLATELET COUNT, AUTOMATED 218 10^3/uL (150-450); RED BLOOD COUNT 4.23 10^6/uL (4.00-5.40); WHITE BLOOD COUNT 4.7 10^3/uL (4.0-10.0)
[2024-04-19 10:24] LABS: ATYPICAL LYMPH 7 % (0-5); EOSINOPHILS 6 % (0-3); LYMPHOCYTES 26 % (16-44); MONOCYTES 6 % (0-5); NEUTROPHILS 55 % (28-66)
[2024-04-19 10:27] LABS: HELMET CELLS 1+
[2024-04-19 10:28] LABS: CRENATED RBC 1+; PLATELET ESTIMATE NORMAL (NORMAL)
== END ==
LOC: M LAB REF 16:41
PROVIDERS: ATTEND Internal Medicine
DX: D72.9 Disorder of white blood cells, unspecified (principal)

== ENCOUNTER → 2024-05-24 | Outpatient (CLI) | payer MEDICARE ==
[~2024-05-24] MED LIST changes: -ESOM0.1C PO; +ESOM20CA2 PO
== END ==
LOC: M CARPUL 09:08
PROVIDERS: ATTEND Internal Medicine
DX: R55 Syncope and collapse (principal)

== ENCOUNTER → 2024-07-07 | Outpatient (CLI) | payer MEDICARE | LOC: M RAD 10:01 | PROVIDERS: ATTEND Nurse Practitioner Family | DX: I77.4 Celiac artery compression syndrome (principal); K55.1 Chronic vascular disorders of intestine; R10.9 Unspecified abdominal pain; K52.9 Noninfective gastroenteritis and colitis, unspecified; R11.2 Nausea with vomiting, unspecified ==

== ENCOUNTER → 2024-08-03 | Outpatient (CLI) | payer MEDICARE ==
[~2024-08-03] MED LIST changes: +ISOVUE-370 76% 100ML VIAL As Ordered ONE
== END ==
LOC: M RAD 10:41
PROVIDERS: ATTEND Internal Medicine Gastroenterology
DX: R55 Syncope and collapse (principal); K52.9 Noninfective gastroenteritis and colitis, unspecified; K21.9 Gastro-esophageal reflux disease without esophagitis; R11.2 Nausea with vomiting, unspecified; I77.1 Stricture of artery
CPT/HCPCS: 74175; Q9967

== ENCOUNTER 2024-09-14 21:19 | Inpatient (IN) | payer MEDICARE ==
[~2024-09-14] VITALS: Ht 170.2 cm; Wt 74.4 kg
[2024-09-14] MEDS: SIMVASTATIN 40 MG TAB PO SCH (21:00)
[2024-09-14] MEDS: AMITRIPTYLINE 50 MG TAB PO SCH (21:00)
[~2024-09-14 21:19] MED LIST changes: -ISOVUE-370 76% 100ML VIAL As Ordered ONE
[2024-09-14 22:06] LABS: VENOUS BASE EXCESS -2.4 (-2.0-2.0); VENOUS HCO3 22.2 MMOL/L (23.0-27.0); VENOUS O2 SATURATION 94.2 % (60.0-80.0); VENOUS PARTIAL PRESSURE CO2 38.1 mmHg (38.0-50.0); VENOUS PARTIAL PRESSURE O2 73.2 mmHg (30.0-50.0); VENOUS PH 7.384 UNITS (7.330-7.430); VENOUS STANDARD HCO3 22.4 MMOL/L; VENOUS TOTAL CO2 23.4 MMOL/L (24.0-28.0)
[2024-09-14 22:13] LABS: BASO % 0.3 % (0.0-1.0); EOS # 0.1 10^3/uL (0.0-0.5); EOS % 1.3 % (0.0-3.0); HEMATOCRIT 39.8 % (36.0-47.0); HEMOGLOBIN 12.9 g/dl (12.0-15.5); LYMPH # 1.3 10^3/uL (1.5-5.0); LYMPH % 17.2 % (24.0-44.0); MEAN CORPUSCULAR HEMOGLOBIN 28.5 pg (27.0-33.0); MEAN CORPUSCULAR HGB CONC 32.4 g/dl (32.0-36.5); MEAN CORPUSCULAR VOLUME 88.1 fl (80.0-96.0); MONO # 0.5 10^3/uL (0.0-0.8); MONO % 6.6 % (2.0-8.0); NEUTROPHILS # 5.6 10^3/uL (1.5-8.5); NEUTROPHILS % 74.5 % (36.0-66.0); PLATELET COUNT, AUTOMATED 217 10^3/uL (150-450); RED BLOOD COUNT 4.52 10^6/uL (4.00-5.40); WHITE BLOOD COUNT 7.5 10^3/uL (4.0-10.0)
[2024-09-14] MEDS: KETOROLAC 30 MG/ML 1ML VIAL IV ONE (22:16)
[2024-09-14] MEDS ORDERED: ISOVUE-370 76% 100ML VIAL As Ordered ONE (22:28)
[2024-09-14 22:48] LABS: ALBUMIN 3.7 G/DL (3.2-5.2); BILIRUBIN,TOTAL 0.3 MG/DL (0.3-1.2); CALCIUM LEVEL 9.6 MG/DL (8.3-10.6); CREATININE FOR GFR 1.16 MG/DL (0.55-1.30); MAGNESIUM LEVEL 1.8 MG/DL (1.8-2.4); POTASSIUM SERUM 4.4 MMOL/L (3.5-5.1); TOTAL PROTEIN 6.2 G/DL (5.7-8.2)
[2024-09-15] MEDS: DEXTROSE 5% IV ONE (01:09)
[2024-09-15] MEDS: PIPERACILLIN IV ONE (01:09)
[2024-09-15] MEDS: MINI IV ONE (01:09)
[2024-09-15] MEDS: ADV IV ONE (01:09)
[2024-09-15] MEDS: TAZOBACTAM SOD IV ONE (01:09)
[2024-09-15] MEDS ORDERED: HYDROMORPHONE HCL 0.5 MG/ 0.5 ML SYRINGE IV PRN (02:10)
[2024-09-15] MEDS ORDERED: ONDANSETRON 4MG 2ML VIAL IV PRN (02:10)
[2024-09-15] MEDS ORDERED: ONE50TAB3 PO (02:16)
[2024-09-15] MEDS ORDERED: FLUO1OPD OS (02:16)
[2024-09-15] MEDS ORDERED: HOME MED LIST COMPLETE! XX SCH (02:20)
[2024-09-15] MEDS ORDERED: METAMUCIL (PSYLLIUM) PACKET PO PRN (02:35)
[2024-09-15] MEDS: tiZANidine 4 MG TAB PO SCH (04:07)
[2024-09-15] MEDS: NORCO, ANEXSIA 5/325MG TABLET (HYDROcodone/ACETAMINOPHEN) PO PRN (04:08)
[2024-09-15 06:12] LABS: HEMATOCRIT 37.9 % (36.0-47.0); HEMOGLOBIN 11.9 g/dl (12.0-15.5); MEAN CORPUSCULAR HEMOGLOBIN 27.4 pg (27.0-33.0); MEAN CORPUSCULAR HGB CONC 31.4 g/dl (32.0-36.5); MEAN CORPUSCULAR VOLUME 87.3 fl (80.0-96.0); PLATELET COUNT, AUTOMATED 178 10^3/uL (150-450); RED BLOOD COUNT 4.34 10^6/uL (4.00-5.40); WHITE BLOOD COUNT 8.6 10^3/uL (4.0-10.0)
[2024-09-15 06:50] LABS: ALBUMIN 3.2 G/DL (3.2-5.2); BILIRUBIN,TOTAL 0.4 MG/DL (0.3-1.2); CALCIUM LEVEL 9.2 MG/DL (8.3-10.6); CREATININE FOR GFR 1.29 MG/DL (0.55-1.30); GLOMERULAR FILTRATION RATE 41.6 (>32); POTASSIUM SERUM 4.4 MMOL/L (3.5-5.1)
[2024-09-15 06:51] LABS: TOTAL PROTEIN 5.4 G/DL (5.7-8.2)
[2024-09-15] MEDS ORDERED: PIPERACILLIN IV SCH (08:00)
[2024-09-15] MEDS ORDERED: ADV IV SCH (08:00)
[2024-09-15] MEDS ORDERED: MINI IV SCH (08:00)
[2024-09-15] MEDS ORDERED: TAZOBACTAM SOD IV SCH (08:00)
[2024-09-15] MEDS ORDERED: DEXTROSE 5% IV SCH (08:00)
[2024-09-15] MEDS ORDERED: PERCOCET 5MG/325MG TAB PO PRN ×2 (08:10)
[2024-09-15] MEDS: PANTOPRAZOLE 40MG VIAL IV SCH (08:14)
[2024-09-15] MEDS: VITAMIN D 1,000 INTERNATIONAL UNITS TABLET PO SCH (08:15)
[2024-09-15] MEDS: CYANOCOBALAMIN 500 MCG TAB PO SCH (08:15)
[2024-09-15] MEDS: MAGNESIUM OXIDE 400MG TAB (MAG-OX) PO SCH (08:15)
[2024-09-15] MEDS: HEPARIN SOD (PORCINE) 5000UNITS/ML 1ML VIAL/SYRINGE SQ SCH (08:15)
[2024-09-15] MEDS: CIPROFLOXACIN 200 MG in IV 1 EA IV SCH (08:16)
[2024-09-15] MEDS: FLUOROMETHOLONE 0.1% OPHTH SUSP 5ML BTL OS SCH (09:23)
[2024-09-15] MEDS: metroNIDAZOLE 500 MG in IV 1 EA IV SCH (09:25)
[2024-09-15 12:28] VITALS: BP 129/58; TEMP 97.6; O2SAT 94
[2024-09-15 14:41] VITALS: BP 152/71; TEMP 97.2; O2SAT 96
[2024-09-15 20:25] VITALS: BP 151/70
[2024-09-15] MEDS: SUCRALFATE 1 GM TAB PO SCH (20:25)
[2024-09-15 21:07] VITALS: TEMP 97.7; O2SAT 98
[2024-09-15 23:18] VITALS: BP_SYST 88; BP_SYST 92; BP_DIAS 43; BP_DIAS 52; TEMP 97.6
[2024-09-15] MEDS: NS 500 ML IV STA (23:32)
[2024-09-16] MEDS ORDERED: UNRESOLVED CLARIFICATION ENTRY XX SCH (00:01)
[2024-09-16 00:51] VITALS: BP 102/48; TEMP 97.5; O2SAT 93
[2024-09-16 04:00] VITALS: BP 129/58; TEMP 97.7; O2SAT 92
[2024-09-16 06:17] LABS: HEMATOCRIT 33.4 % (36.0-47.0); HEMOGLOBIN 10.4 g/dl (12.0-15.5); MEAN CORPUSCULAR HEMOGLOBIN 27.8 pg (27.0-33.0); MEAN CORPUSCULAR HGB CONC 31.1 g/dl (32.0-36.5); MEAN CORPUSCULAR VOLUME 89.3 fl (80.0-96.0); PLATELET COUNT, AUTOMATED 163 10^3/uL (150-450); RED BLOOD COUNT 3.74 10^6/uL (4.00-5.40); WHITE BLOOD COUNT 4.5 10^3/uL (4.0-10.0)
[2024-09-16 06:45] LABS: ALBUMIN 2.8 G/DL (3.2-5.2); BILIRUBIN,TOTAL 0.3 MG/DL (0.3-1.2); CALCIUM LEVEL 8.6 MG/DL (8.3-10.6); CREATININE FOR GFR 1.14 MG/DL (0.55-1.30); POTASSIUM SERUM 4.2 MMOL/L (3.5-5.1); TOTAL PROTEIN 4.9 G/DL (5.7-8.2)
[2024-09-16] MEDS ORDERED: METR-265 PO (08:08)
[2024-09-16] MEDS ORDERED: ACET-910 PO (08:08)
[2024-09-16] MEDS ORDERED: CIPR250T3 PO (08:08)
[2024-09-16] MEDS ORDERED: PROB250C PO (08:08)
== END 2024-09-16 11:18 | disposition home or self-care (01) | DRG 392 ==
LOC: M ED 21:19 → M ED INP 09-15 01:59 → M MS5PR 09-15 14:15
PROVIDERS: ADMIT Student in an Organized Health Care Education/Training Program; ATTEND Internal Medicine
DX: K52.9 Noninfective gastroenteritis and colitis, unspecified (principal); K57.32 Diverticulitis of large intestine without perforation or abscess without bleeding; I12.9 Hypertensive chronic kidney disease with stage 1 through stage 4 chronic kidney disease, or unspecified chronic kidney disease; K21.9 Gastro-esophageal reflux disease without esophagitis; E11.22 Type 2 diabetes mellitus with diabetic chronic kidney disease; E78.5 Hyperlipidemia, unspecified; N18.30 Chronic kidney disease, stage 3 unspecified; M62.838 Other muscle spasm; D50.0 Iron deficiency anemia secondary to blood loss (chronic); K44.9 Diaphragmatic hernia without obstruction or gangrene; Z66 Do not resuscitate; Z96.643 Presence of artificial hip joint, bilateral; Z79.899 Other long term (current) drug therapy; Z88.5 Allergy status to narcotic agent

== ENCOUNTER 2024-11-11 15:12 | Emergency (ER) | payer MEDICARE ==
[~2024-11-11] VITALS: Ht 170.2 cm; Wt 73.8 kg
[~2024-11-11 15:12] MED LIST changes: +ACET-910 PO; +CIPR250T3 PO; +FLUO1OPD OS; +ONE50TAB3 PO; +PROB250C PO
[2024-11-11 16:05] LABS: BASO % 0.1 % (0.0-1.0); EOS # 0.1 10^3/uL (0.0-0.5); EOS % 1.9 % (0.0-3.0); HEMATOCRIT 39.4 % (36.0-47.0); HEMOGLOBIN 12.3 g/dl (12.0-15.5); LYMPH # 1.2 10^3/uL (1.5-5.0); LYMPH % 16.7 % (24.0-44.0); MEAN CORPUSCULAR HEMOGLOBIN 27.8 pg (27.0-33.0); MEAN CORPUSCULAR HGB CONC 31.2 g/dl (32.0-36.5); MEAN CORPUSCULAR VOLUME 89.1 fl (80.0-96.0); MONO # 0.6 10^3/uL (0.0-0.8); MONO % 7.5 % (2.0-8.0); NEUTROPHILS # 5.5 10^3/uL (1.5-8.5); NEUTROPHILS % 73.4 % (36.0-66.0); PLATELET COUNT, AUTOMATED 222 10^3/uL (150-450); RED BLOOD COUNT 4.42 10^6/uL (4.00-5.40); WHITE BLOOD COUNT 7.4 10^3/uL (4.0-10.0)
[2024-11-11 16:30] LABS: LIPASE 20 U/L (12-53)
[2024-11-11 16:32] LABS: ALBUMIN 3.5 G/DL (3.2-5.2); ALKALINE PHOSPHATASE 63 U/L (35-104); ALT/SGPT 15 U/L (7.0-40); AST/SGOT 14 U/L (<34); BILIRUBIN,DIRECT < 0.1 MG/DL (<0.4); BILIRUBIN,TOTAL 0.3 MG/DL (0.3-1.2); TOTAL PROTEIN 6.3 G/DL (5.7-8.2)
[2024-11-11] MEDS ORDERED: ISOVUE-370 76% 100ML VIAL As Ordered ONE (17:14)
[2024-11-11 18:22] VITALS: TEMP 97.8; O2SAT 95
[2024-11-11] MEDS ORDERED: AMOX875T2 PO (18:29)
[2024-11-11 18:39] VITALS: BP 200/94
== END 2024-11-11 18:44 | disposition home or self-care (01) ==
LOC: M ED 15:12
DX: A09 Infectious gastroenteritis and colitis, unspecified (principal); K58.9 Irritable bowel syndrome, unspecified; Z88.5 Allergy status to narcotic agent; Z79.1 Long term (current) use of non-steroidal anti-inflammatories (NSAID); Z79.2 Long term (current) use of antibiotics; Z79.810 Long term (current) use of selective estrogen receptor modulators (SERMs); Z79.899 Other long term (current) drug therapy
CPT/HCPCS: 36415; 74177; 80047; 80076; 81001; 83690; 85025; 99284; Q9967

== ENCOUNTER → 2024-11-30 | Outpatient (REF) | payer MEDICARE | LOC: M LAB REF 16:00 | PROVIDERS: ATTEND Internal Medicine Gastroenterology | DX: R10.9 Unspecified abdominal pain (principal) ==

== ENCOUNTER 2025-02-16 13:32 | Emergency (ER) | payer MEDICARE ==
[~2025-02-16] VITALS: Ht 170.2 cm; Wt 71.1 kg
[2025-02-16] MEDS ORDERED: LISI10TA22 (13:55)
[2025-02-16] MEDS ORDERED: ACET-897 PO (13:55)
[2025-02-16] MEDS ORDERED: DICY-61 (13:55)
[2025-02-16 14:16] LABS: BASO % 0.1 % (0.0-1.0); EOS # 0.3 10^3/uL (0.0-0.5); EOS % 3.5 % (0.0-3.0); HEMATOCRIT 40.7 % (36.0-47.0); HEMOGLOBIN 12.6 g/dl (12.0-15.5); LYMPH % 14.1 % (24.0-44.0); MEAN CORPUSCULAR HEMOGLOBIN 28.1 pg (27.0-33.0); MEAN CORPUSCULAR VOLUME 90.8 fl (80.0-96.0); MONO # 0.5 10^3/uL (0.0-0.8); NEUTROPHILS # 5.4 10^3/uL (1.5-8.5); PLATELET COUNT, AUTOMATED 212 10^3/uL (150-450); RED BLOOD COUNT 4.48 10^6/uL (4.00-5.40); WHITE BLOOD COUNT 7.2 10^3/uL (4.0-10.0)
[2025-02-16 14:47] LABS: LIPASE 30 U/L (12-53)
[2025-02-16 14:49] LABS: ALBUMIN 3.4 G/DL (3.2-5.2); ALKALINE PHOSPHATASE 101 U/L (35-104); ALT/SGPT 21 U/L (7.0-40); AST/SGOT 17 U/L (<34); BILIRUBIN,DIRECT < 0.1 MG/DL (<0.4); BILIRUBIN,TOTAL 0.3 MG/DL (0.3-1.2); BLOOD UREA NITROGEN 32 MG/DL (9-23); CALCIUM LEVEL 8.6 MG/DL (8.3-10.6); CARBON DIOXIDE LEVEL 28 MMOL/L (20-31); CHLORIDE LEVEL 108 MMOL/L (98-107); GLUCOSE, FASTING 134 MG/DL (74-106); POTASSIUM SERUM 4.5 MMOL/L (3.5-5.1); SODIUM LEVEL 142 MMOL/L (136-145); TOTAL PROTEIN 5.8 G/DL (5.7-8.2)
[2025-02-16 15:58] LABS: KETONE, URINE AUTO RFX NEGATIVE (NEGATIVE); NITRITE, URINE AUTO RFX NEGATIVE (NEGATIVE); RBC, URINE AUTO RFX 0 /HPF (0-3); SQUAM EPITHELIAL CELL UR AURFX 1 /HPF (0-6); WBC, URINE AUTO RFX 2 /HPF (0-3)
[2025-02-16 16:00] LABS: LEUKOCYTE ESTERASE UR AUTO RFX TRACE (NEGATIVE)
[2025-02-16] MEDS: LR 1,000 ML IV ONE (16:53)
[2025-02-16] MEDS ORDERED: ISOVUE-370 76% 100ML VIAL As Ordered ONE (16:58)
[2025-02-16 17:03] LABS: MAGNESIUM LEVEL 2.7 MG/DL (1.8-2.4)
[2025-02-16] MEDS ORDERED: DICY-61 PO (18:23)
[2025-02-16] MEDS ORDERED: ONDA-282 PO (18:34)
[2025-02-16 18:46] VITALS: BP 172/77; TEMP 97.4; O2SAT 100
== END 2025-02-16 19:08 | disposition home or self-care (01) ==
LOC: M ED 13:32 → EDBD 13:32 → M ED 19:08
DX: K90.0 Celiac disease (principal); R10.32 Left lower quadrant pain; E11.9 Type 2 diabetes mellitus without complications; K21.9 Gastro-esophageal reflux disease without esophagitis; I10 Essential (primary) hypertension; E78.5 Hyperlipidemia, unspecified; F10.10 Alcohol abuse, uncomplicated; Z88.5 Allergy status to narcotic agent; Z79.1 Long term (current) use of non-steroidal anti-inflammatories (NSAID); Z79.810 Long term (current) use of selective estrogen receptor modulators (SERMs); Z79.899 Other long term (current) drug therapy
CPT/HCPCS: 74177; 80048; 80076; 81001; 83690; 83735; 85025; 87086; 96374; 99284; Q9967

== ENCOUNTER 2025-03-27 10:18 | Emergency (ER) | payer MEDICARE ==
[~2025-03-27] VITALS: Ht 170.2 cm; Wt 70.6 kg
[~2025-03-27 10:18] MED LIST changes: +ACET-897 PO; +DICY-61; +LISI10TA22; +ONDA-282 PO
[2025-03-27] MEDS ORDERED: NEXI20CA33 PO (13:11)
[2025-03-27 13:57] LABS: BASO % 0.4 % (0.0-1.0); EOS # 0.2 10^3/uL (0.0-0.5); EOS % 3.5 % (0.0-3.0); HEMATOCRIT 37.9 % (36.0-47.0); HEMOGLOBIN 11.8 g/dl (12.0-15.5); LYMPH # 1.2 10^3/uL (1.5-5.0); LYMPH % 25.6 % (24.0-44.0); MEAN CORPUSCULAR HEMOGLOBIN 27.6 pg (27.0-33.0); MEAN CORPUSCULAR HGB CONC 31.1 g/dl (32.0-36.5); MEAN CORPUSCULAR VOLUME 88.8 fl (80.0-96.0); MONO # 0.4 10^3/uL (0.0-0.8); MONO % 8.9 % (2.0-8.0); NEUTROPHILS % 61.4 % (36.0-66.0); PLATELET COUNT, AUTOMATED 188 10^3/uL (150-450); RED BLOOD COUNT 4.27 10^6/uL (4.00-5.40); WHITE BLOOD COUNT 4.8 10^3/uL (4.0-10.0)
[2025-03-27 14:02] LABS: ERYTHROCYTE SEDIMENTATION RATE 10 mm/hr (0-30)
[2025-03-27 14:18] LABS: BLOOD UREA NITROGEN 22 MG/DL (9-23); C REACTIVE PROTEIN QUANTITATIV < 0.50 MG/DL (<1.0); CALCIUM LEVEL 8.9 MG/DL (8.3-10.6); CARBON DIOXIDE LEVEL 28 MMOL/L (20-31); CHLORIDE LEVEL 107 MMOL/L (98-107); GLOMERULAR FILTRATION RATE 54.5 (>32); GLUCOSE, FASTING 95 MG/DL (74-106); POTASSIUM SERUM 5.1 MMOL/L (3.5-5.1); SODIUM LEVEL 142 MMOL/L (136-145)
[2025-03-27 15:28] VITALS: BP 180/74
[2025-03-27 15:30] VITALS: TEMP 97.7; O2SAT 98
[2025-03-30 12:43] LABS: LYME TOTAL ANTIBODY CIA <= 0.90 Index (<=0.90)
== END 2025-03-27 15:33 | disposition home or self-care (01) ==
LOC: M ED 10:18
DX: R20.2 Paresthesia of skin (principal); E11.9 Type 2 diabetes mellitus without complications; E78.00 Pure hypercholesterolemia, unspecified; I10 Essential (primary) hypertension; Z88.5 Allergy status to narcotic agent; Z79.810 Long term (current) use of selective estrogen receptor modulators (SERMs); Z79.899 Other long term (current) drug therapy

== ENCOUNTER → 2025-04-01 | Outpatient (REF) | payer MEDICARE ==
[~2025-04-01] MED LIST changes: +NEXI20CA33 PO
== END ==
LOC: M LAB REF 17:50
PROVIDERS: ATTEND Student in an Organized Health Care Education/Training Program
DX: R30.0 Dysuria (principal)

== ENCOUNTER 2025-06-24 13:05 | Emergency (ER) | payer MEDICARE ==
[~2025-06-24] VITALS: Ht 170.2 cm; Wt 68.8 kg
[~2025-06-24 13:05] MED LIST changes: +ACET-1515 PO; +ACET250T18 PO; -ACET650T15 PO; +DICY1CAP8 PO; +MACR100C43 PO; +NEOM10OI OS; +OFLO5DRO OS; +PRED1SUS2 OS; +ROSU20TA86 PO; +VYZU0.02 OS
[2025-06-24] MEDS ORDERED: ONDA-83 (13:23)
[2025-06-24] MEDS: FIORICET TAB PO ONE (16:49)
[2025-06-24 17:05] LABS: BASO # 0.0 10^3/uL (0.0-0.2); BASO % 0.2 % (0.0-1.0); EOS # 0.1 10^3/uL (0.0-0.5); EOS % 1.3 % (0.0-3.0); LYMPH # 1.1 10^3/uL (1.5-5.0); LYMPH % 19.8 % (24.0-44.0); MONO # 0.4 10^3/uL (0.0-0.8); MONO % 7.5 % (2.0-8.0); NEUTROPHILS # 3.8 10^3/uL (1.5-8.5); NEUTROPHILS % 70.8 % (36.0-66.0); PLATELET COUNT, AUTOMATED 170 10^3/uL (150-450)
[2025-06-24 17:11] LABS: ERYTHROCYTE SEDIMENTATION RATE 15 mm/hr (0-30)
[2025-06-24] MEDS ORDERED: ISOVUE-370 76% 100 ML VIAL As Ordered ONE (17:29)
[2025-06-24] MEDS: hydrALAZINE 20 MG/ML 1 ML VIAL IV ONE ×2 (19:50→21:34)
[2025-06-24] MEDS: AUGMENTIN 875 MG TAB PO ONE (19:51)
[2025-06-24] MEDS: KETOROLAC 30 MG/ML 1 ML VIAL IV ONE (19:51)
[2025-06-24 21:09] LABS: KETONE, URINE AUTO RFX NEGATIVE (NEGATIVE); LEUKOCYTE ESTERASE UR AUTO RFX NEGATIVE (NEGATIVE); NITRITE, URINE AUTO RFX NEGATIVE (NEGATIVE); RBC, URINE AUTO RFX 0 /HPF (0-3); SQUAM EPITHELIAL CELL UR AURFX 0 /HPF (0-6); WBC, URINE AUTO RFX 0 /HPF (0-3)
[2025-06-24 22:09] LABS: CK-MB VALUE MASS 1.5 NG/ML (<3.6)
[2025-06-24] MEDS ORDERED: LISI5TAB11 PO (22:10)
[2025-06-24] MEDS ORDERED: AMOX875T2 PO (22:10)
[2025-06-24 22:11] LABS: CPK CREATINE PHOSPHOKINASE 32.0 U/L (34-145); MB/CK RELATIVE INDEX 4.68 (< OR =4)
[2025-06-24] MEDS ORDERED: FIOR1CAP PO (22:18)
[2025-06-24 22:30] VITALS: BP 159/76; TEMP 98; O2SAT 99
== END 2025-06-24 22:37 | disposition home or self-care (01) ==
LOC: M ED 13:05
DX: R51.9 Headache, unspecified (principal); J01.90 Acute sinusitis, unspecified; I10 Essential (primary) hypertension; Z88.5 Allergy status to narcotic agent; Z79.1 Long term (current) use of non-steroidal anti-inflammatories (NSAID); Z79.2 Long term (current) use of antibiotics; Z79.899 Other long term (current) drug therapy; Z79.810 Long term (current) use of selective estrogen receptor modulators (SERMs)
CPT/HCPCS: 70450; 70481; 80047; 81001; 82550; 82553; 84484; 85025; 85652; 93005; 96374; 96375; 96376; 99285; J0360; J1885; Q9967

== ENCOUNTER → 2025-06-29 | Outpatient (CLI) | payer MEDICARE ==
[~2025-06-29] MED LIST changes: +FIOR1CAP PO; +LISI5TAB11 PO; +ONDA-83
== END ==
LOC: M CARPUL 14:10
PROVIDERS: ATTEND Internal Medicine Cardiovascular Disease
DX: I27.20 Pulmonary hypertension, unspecified (principal); I50.30 Unspecified diastolic (congestive) heart failure; I35.8 Other nonrheumatic aortic valve disorders

== ENCOUNTER → 2025-10-01 | Outpatient (CLI) | payer MEDICARE | LOC: M WUC 11:36 | PROVIDERS: ATTEND Registered Nurse | DX: R05.9 Cough, unspecified (principal) ==